=== PATIENT | female | born 2000 | race Caucasian/White ===

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

== ENCOUNTER 2022-10-17 12:02 | Inpatient (IN) | payer OTHER, MEDICAID, SELFPAY ==
--- NOTE | ~2022-10-17 | US_ITS ---
EXAMINATION: US PELVIS CLINICAL INFORMATION: Pelvic pain COMPARISON: None TECHNIQUE: Ultrasound of the pelvis is performed using both transabdominal and transvaginal transducers along with Doppler. Transvaginal imaging is performed due to inadequate visualization transabdominally. FINDINGS: Uterus: The uterus is anteverted and measures 6.6 x 2.4 x 3.4 cm. There is trace fluid in the endocervical canal. The double wall endometrial thickness is 0.6 mm. The uterus is smooth in contour and has normal myometrial echogenicity. Incidental note of mildly prominent periuterine vessels. No visible fibroid. Adnexa: Both ovaries are visualized. There is normal color flow to the adnexa. There is no pelvic ascites or fluid collection. Right ovary measures 3.1 x 2.7 x 2.3 cm for a volume of 10 mL There are multiple tiny peripheral follicles. Left ovary measures 1.6 x 1.4 x 1.5 cm for a volume of 2 mL. US/US pelvic and transvaginal IMPRESSION: Overall essentially unremarkable ultrasound appearance of the uterus. Nonspecific finding of multiple tiny peripheral follicles within the right ovary which measures for greater volume than the left. (10 ml vs 2 ml). No definite findings to suggest ovarian torsion, however recommend close clinical follow-up and if there is continued concern, further evaluation with dedicated Doppler ultrasound could be performed.
[2022-10-17 12:09] VITALS: BP 171/104; PULSE 121; RESP 20; TEMP 36.9; O2SAT 99; BMI 20.5
--- NOTE | 2022-10-17 13:13 | PC.NURSE ---
Addendum entered by Lu Heck 10/17/22 16:22: Care team notified of Medical cleared status. Addendum entered by Lu Heck 10/17/22 14:49: Plan at this time is for PO antibiotic, lab work and PO ativan. Pt and family aware of plan. Addendum entered by Lu Heck 10/17/22 14:41: Provider at bedside for initial eval. Original Note: Affect is flat with bizarre word choice. Pt denies SI/HI but reports it intermittently. per pt this is the first time my head is silent, but mostly on left side . Pt able to contract for safety. Denies any significant medical history/surgical history, recent drug use, ETOH, AH or VH.
[2022-10-17 13:20] LABS: Appearance Urine Clear; Color Urine Dark Yellow; Glucose Urine UA Negative (Negative); Leukocyte Esterase Urine Small (1+) (Negative); Nitrite Urine Negative (Negative); UMIC TRIGGER UACC YES; Urine Blood Negative (Negative); Urine Ketones >=160 mg/dL (Negative); Urine Protein 100 (2+) mg/dL (Neg-Trace)
[2022-10-17 13:21] LABS: UPreg QC Valid YES; Urine Pregnancy NEGATIVE (NEGATIVE)
[2022-10-17 13:28] LABS: Amphetamine Screen Urine Not Detected (Not Detect); Bacteria Urine 1+ (None Seen); Barbiturates, Urine Not Detected (Not Detect); Benzodiazepines Screen Urine Not Detected (Not Detect); Cannabinoid Screen Urine POSITIVE (Not Detect); Cocaine Screen Urine Not Detected (Not Detect); Fentanyl, urine Not Detected (Not Detect); Hyaline Casts Urine 0-2 /LPF (0-2); Opiate Screen Urine Not Detected (Not Detect); Phencyclidine Screen Urine Not Detected (Not Detect); Specific Gravity - Urine >= 1.030 (1.005-1.025); UACC Culture Trigger YES; WBC Urine 21-50 /HPF (0-5)
[2022-10-17 13:32] LABS: COVID-19 Test Negative (Negative); IDNOW Serial# 16C4AD1C
[2022-10-17 14:00] VITALS: RESP 16
--- NOTE | 2022-10-17 14:37 | ED_ITS ---
HPI - Psych General Chief Complaint: Psychiatric Symptoms Stated Complaint: Crisis Evaluated Time Seen by Provider: 10/17/22 13:08 Source: patient Mode of arrival: ambulatory Limitations: no limitations History of Present Illness HPI Narrative: This is a 21-year-old female who has no known medical history who presents with her aunt with concern for change in behavior. Per aunt the patient has a long standing history of trauma exposure, exposure to parents and siblings who have used substances. Patient has had difficulty sleeping for the last week, decreased intake and strange behavior per aunt. Aunt is concerned that she may have been using substances with her brother. History of present illness from the patient is limited. She does deny no suicidal ideations, homicidal ideations, hallucinations. She has no complaints. She denies substance use. Related Data Home Medications Medication Instructions Recorded Confirmed No Known Home Meds 10/17/22 10/17/22 Allergies Allergy/AdvReac Type Severity Reaction Status Date / Time apple [APPLES] Allergy Unknown ITCHING Unverified 06/30/20 17:20 Review of Systems Review of Systems: Yes all other systems are reviewed and are negative Constitutional: Constitutional: Reports no additional constitutional complaints, Denies body ache(s), Denies chills, Denies fever(s), Denies headache(s) and Denies weakness Eyes: Eyes: Reports no additional eye complaints and Denies change in vision ENT: Reports system reviewed and no additional complaints, except as documented, Denies dizziness, Denies headache(s), Denies nasal congestion, Denies nasal discharge and Denies neck pain Cardiovascular: Cardiovascular: Reports no additional cardiovascular complaints, Denies chest pain, Denies leg edema and Denies dyspnea Respiratory: Respiratory: Reports no additional respiratory complaints, Denies cough and Denies dyspnea Gastrointestinal: Gastrointestinal: Reports no additional gastrointestinal complaints, Denies abdominal pain, Denies diarrhea, Denies nausea and Denies vomiting Genitourinary: Genitourinary: Reports no additional female genitourinary complaints and Denies urinary incontinence Musculoskeletal: Musculoskeletal: Reports no additional musculoskeletal complaints, Denies back pain, Denies arthralgias, Denies joint swelling, Denies neck pain, Denies numbness and Denies tingling Integumentary/Breasts: Skin/Breast: Reports system reviewed and no additional complaints, except as docu and Denies rash Neurologic: Reports system reviewed and no additional complaints, except as documented, Denies Abnormal speech present, Denies dizziness, Denies headache(s), Denies numbness, Denies tingling and Denies weakness PMFSH Past Medical History Attestation statement: The following information was validated with the patient. Source: old records reviewed and nursing notes reviewed Medical History No known health problems Surgical History No history of previous surgery Social History Social History Alcohol intake: unknown Smoked in Last 30 Days: No Use of substances other than those prescribed or required for medical reasons: Unknown Advance Directives: No Patient : No Physical Exam Vital Signs: Vital Signs: Last Vital Signs Temp 98.2 F 10/18/22 10:41 Pulse 105 H 10/18/22 10:41 Resp 16 10/18/22 10:41 BP 150/95 H 10/18/22 10:41 Pulse Ox 96 10/18/22 10:41 O2 Del Method 10/18/22 10:41 BMI result Body Mass Index 20.5 Const: Other: Restless, anxious General: alert Orientation/consciousness: patient oriented x3 Limitations: no limitations HEENT: Head: Yes normal to inspection Ears: hearing grossly normal bilaterally General nose exam: Normal external nose present Face and sinus: Yes normal facial exam Mouth: Normal oral and palatal mucosa present Throat: Yes posterior oropharynx normal Eyes: General: appearance normal, both eyes and all related structures Pupils: Equal, round and reactive pupils present Neck: Neck: Yes normal visual inspection Chest: Chest palpation & inspection: normal inspection of the chest Resp: Effort & Inspection: normal respiratory effort Auscultation: clear to auscultation bilaterally Cardio: Rate: regular rate Rhythm: regular rhythm Peripheral pulses: Peripheral pulses 2+ throughout GI: Inspection: Yes normal to inspection Palpation (GI): Soft to palpation and nontender Auscultation: normal bowel sounds Back/Spine/Pelvis: Thoracic/Lumbar Spine: thoracic and lumbar spine normal to inspection Skin: General skin exam: no rashes or lesions noted Neuro: Other: Hyperverbal, hypersexual, restless General: patient oriented x3, moves all extremities, no focal motor deficits and normal sensation to monofilament Cranial nerves: Yes CN's II-XII intact bilaterally and Yes Equal, round and reactive pupils present Speech: No Abnormal speech present Gait exam (Neuro): Normal gait present Extrem: General: Yes normal to inspection Course Course Course Narrative: No concern for acute ingestion or trauma. Reviewed labs and tox screen. Patient has a care team consultation for further evaluation. Medications Administered Generic Name Dose Route Start Last Admin Trade Name Freq PRN Reason Stop Dose Admin Nitrofurantoin Macrocrystals 100 mg 10/18/22 09:00 10/18/22 10:17 Nitrofurantoin Monohyd/M-Cryst 100 Mg Capsule PO 100 mg BID INO Administration Discontinued Medications Generic Name Dose Route Start Last Admin Trade Name Freq PRN Reason Stop Dose Admin Diphenhydramine HCl 50 mg 10/17/22 20:44 10/17/22 20:51 Diphenhydramine Hcl 25 Mg Capsule PO 10/17/22 20:45 50 mg ONCE ONE Administration Lorazepam 2 mg 10/17/22 14:48 10/17/22 14:56 Lorazepam 1 Mg Tablet PO 10/17/22 14:49 2 mg ONCE ONE Administration Lorazepam 2 mg 10/17/22 20:44 10/17/22 20:51 Lorazepam 1 Mg Tablet PO 10/17/22 20:45 2 mg ONCE ONE Administration Nitrofurantoin Macrocrystals 100 mg 10/17/22 14:48 10/17/22 14:56 Nitrofurantoin Monohyd/M-Cryst 100 Mg Capsule PO 10/17/22 14:49 100 mg ONCE ONE Administration Olanzapine 5 mg 10/17/22 20:44 10/17/22 20:51 Olanzapine 5 Mg Tablet PO 10/17/22 20:45 5 mg ONCE ONE Administration Medical Decision Making Medical Decision Making [facility] Narrative: 21-year-old female here with change in behavior, concern for odd behavior from family, insomnia. On arrival patient is quite anxious, restless, hyperverbal during conversation, hypersexual Patient is tachycardic Patient feels well and tells me nothing is bothering Will obtain labs, drug screen, COVID screen Will give lorazepam oral Differential Diagnosis Differential Diagnoses: The differential diagnosis associated with the presentation includes Anxiety, insomnia, manic episode, polysubstance abuse Lab Data [facility] Lab Attestation statement: I reviewed the patient's lab results. Result Diagrams: 10/17/22 15:04 10/17/22 15:04 Labs: Lab Results 10/17/22 10/17/22 10/17/22 Range/Units 13:07 13:07 13:07 WBC (4.8-10.8) X10*3/uL RBC (4.20-5.50) X10*6/uL Hgb (12.0-16.0) g/dl Hct (37.0-47.0) % MCV (80.0-98.0) fL MCH (27.0-33.0) pg MCHC (31.0-35.0) g/dl RDW (11.0-16.0) % Plt Count (160-400) X10*3/uL MPV (9.4-12.3) fL Immature Gran % (Auto) (0.0-0.4) % Neut % (Auto) (45-73) % Lymph % (Auto) (20-40) % [place] % (Auto) (2-11) % Eos % (Auto) (0-4) % Baso % (Auto) (0-2) % Lymph # (Auto) (1.2-4.9) X10*3/uL [place] # (Auto) (0.1-1.2) X10*3/uL Eos # (Auto) (0.0-0.4) X10*3/uL Baso # (Auto) (0.0-0.2) X10*3/uL Abs Immat Gran (auto) (0.00-0.03) X10*3/uL Absolute Neuts (auto) (2.0-8.3) x10*3/uL Absolute Nucleated RBC (0.0-0.012) X10*3/uL Nucleated RBC % (auto) (0.0-0.2) /100WBC Sodium (135-145) mmol/L Potassium (3.3-5.1) mmol/L Chloride (96-108) mmol/L Carbon Dioxide (22-29) mmol/L Anion Gap (12-20) BUN (9-16) mg/dL Creatinine (0.5-1.4) mg/dL Estim Creat Clear Calc Estimated GFR Random Glucose (60-115) mg/dL Calcium (8.4-10.2) mg/dL Total Bilirubin (0.0-1.0) mg/dL Direct Bilirubin (0.0-0.5) mg/dL AST (5-31) U/L ALT (0-31) U/L Alkaline Phosphatase (39-117) U/L Total Protein (6.5-8.0) g/dL Albumin (3.5-5.0) g/dL TSH (0.32-4.0) uIU/mL Urine Color Dark Yellow Urine Appearance Clear Urine pH 6.0 (5.0-9.0) Ur Specific [place] >= 1.030 H (1.005-1.025) Urine Protein 100 (2+) H (Neg-Trace) mg/dL Urine Glucose (UA) Negative (Negative) mg/dL Urine Ketones >=160 (Negative) mg/dL Urine Blood Negative (Negative) Urine Nitrite Negative (Negative) Ur Leukocyte Esterase Small (1+) H (Negative) Urine RBC 3-5 H (0-2) /HPF Urine WBC 21-50 H (0-5) /HPF Ur Squamous Epith Cells 3-5 (0-2) /HPF Urine Bacteria 1+ (None Seen) Hyaline Casts 0-2 (0-2) /LPF Urine Test NEGATIVE (NEGATIVE) Salicylates (15-30) mg/dL Urine Opiates Screen (Not Detect) Urine Fentanyl Screen (Not Detect) Acetaminophen (<30) mcg/mL Ur Barbiturates Screen (Not Detect) Ur Phencyclidine Scrn (Not Detect) Ur Amphetamines Screen (Not Detect) U Benzodiazepines Scrn (Not Detect) Urine Cocaine Screen (Not Detect) U Marijuana (THC) Screen (Not Detect) Ethyl Alcohol mg/dL COVID-19 ([facility]) Negative (Negative) COVID-19 Clin Com See Note 10/17/22 10/17/22 10/17/22 Range/Units 13:07 15:04 15:04 WBC 15.1 H (4.8-10.8) X10*3/uL RBC 4.80 (4.20-5.50) X10*6/uL Hgb 14.0 (12.0-16.0) g/dl Hct 41.4 (37.0-47.0) % MCV 86.3 (80.0-98.0) fL MCH 29.2 (27.0-33.0) pg MCHC 33.8 (31.0-35.0) g/dl RDW 13.4 (11.0-16.0) % Plt Count 261 (160-400) X10*3/uL MPV 12.2 (9.4-12.3) fL Immature Gran % (Auto) 0.3 (0.0-0.4) % Neut % (Auto) 80.5 H (45-73) % Lymph % (Auto) 11.0 L (20-40) % [place] % (Auto) 7.6 (2-11) % Eos % (Auto) 0.1 (0-4) % Baso % (Auto) 0.5 (0-2) % Lymph # (Auto) 1.7 (1.2-4.9) X10*3/uL [place] # (Auto) 1.2 (0.1-1.2) X10*3/uL Eos # (Auto) 0.0 (0.0-0.4) X10*3/uL Baso # (Auto) 0.1 (0.0-0.2) X10*3/uL Abs Immat Gran (auto) 0.05 H (0.00-0.03) X10*3/uL Absolute Neuts (auto) 12.2 H (2.0-8.3) x10*3/uL Absolute Nucleated RBC 0.000 (0.0-0.012) X10*3/uL Nucleated RBC % (auto) 0.0 (0.0-0.2) /100WBC Sodium 138 (135-145) mmol/L Potassium 3.8 (3.3-5.1) mmol/L Chloride 104 (96-108) mmol/L Carbon Dioxide 23 (22-29) mmol/L Anion Gap 15 (12-20) BUN 10 (9-16) mg/dL Creatinine 0.71 (0.5-1.4) mg/dL Estim Creat Clear Calc 109.5 Estimated GFR > 60 Random Glucose 95 (60-115) mg/dL Calcium 10.4 H (8.4-10.2) mg/dL Total Bilirubin 1.6 H (0.0-1.0) mg/dL Direct Bilirubin 0.5 (0.0-0.5) mg/dL AST 48 H (5-31) U/L ALT 51 H (0-31) U/L Alkaline Phosphatase 66 (39-117) U/L Total Protein 8.0 (6.5-8.0) g/dL Albumin 4.9 (3.5-5.0) g/dL TSH 1.59 (0.32-4.0) uIU/mL Urine Color Urine Appearance Urine pH (5.0-9.0) Ur Specific [place] (1.005-1.025) Urine Protein (Neg-Trace) mg/dL Urine Glucose (UA) (Negative) mg/dL Urine Ketones (Negative) mg/dL Urine Blood (Negative) Urine Nitrite (Negative) Ur Leukocyte Esterase (Negative) Urine RBC (0-2) /HPF Urine WBC (0-5) /HPF Ur Squamous Epith Cells (0-2) /HPF Urine Bacteria (None Seen) Hyaline Casts (0-2) /LPF Urine Test (NEGATIVE) Salicylates < 5.0 L (15-30) mg/dL Urine Opiates Screen Not Detected (Not Detect) Urine Fentanyl Screen Not Detected (Not Detect) Acetaminophen < 1 (<30) mcg/mL Ur Barbiturates Screen Not Detected (Not Detect) Ur Phencyclidine Scrn Not Detected (Not Detect) Ur Amphetamines Screen Not Detected (Not Detect) U Benzodiazepines Scrn Not Detected (Not Detect) Urine Cocaine Screen Not Detected (Not Detect) U Marijuana (THC) Screen POSITIVE H (Not Detect) Ethyl Alcohol < 10 mg/dL COVID-19 ([facility]) (Negative) COVID-19 Clin Com Independent Historian Clinical information obtained from an independent historian. History obtained from or confirmed by: Other (aunt) Discharge Plan Discharge Clinical Impression: Acute psychosis, UTI (urinary tract infection) Patient Disposition: Still a Patient Prescriptions: No Action No Known Home Meds Interventions: Dent-Suicide Risk Severity Scale Last Done: 10/18/22 12:00
[2022-10-17] MEDS: Nitrofurantoin Monohyd/M-Cryst 100 MG CAPSULE PO (14:56)
[2022-10-17] MEDS: LORazepam 1 MG TABLET 2 MG PO ×2 (14:56→20:51)
[2022-10-17 15:07] LABS: MANUAL DIFF FLAG NO
[2022-10-17 15:12] LABS: Basophils Absolute Auto 0.1 X10*3/uL (0.0-0.2); Basophils Percent Auto 0.5 % (0-2); Eosinophils Percent Auto 0.1 % (0-4); Hematocrit 41.4 % (37.0-47.0); Imm Gran Abs Auto 0.05 X10*3/uL (0.00-0.03); Imm Gran Pct Auto 0.3 % (0.0-0.4); Lymphocytes Absolute Auto 1.7 X10*3/uL (1.2-4.9); Mean Corpuscular HGB Conc 33.8 g/dl (31.0-35.0); Mean Corpuscular Hemoglobin 29.2 pg (27.0-33.0); Mean Corpuscular Volume 86.3 fL (80.0-98.0); Mean Platelet Volume 12.2 fL (9.4-12.3); Monocytes Absolute Auto 1.2 X10*3/uL (0.1-1.2); Monocytes Percent Auto 7.6 % (2-11); Neutrophils Absolute Auto 12.2 x10*3/uL (2.0-8.3); Neutrophils Percent Auto 80.5 % (45-73); Platelet Count 261 X10*3/uL (160-400); Red Cell Distribution Width 13.4 % (11.0-16.0); White Blood Count 15.1 X10*3/uL (4.8-10.8)
[2022-10-17 15:51] LABS: Alanine Aminotransferase 51 U/L (0-31); Albumin Level 4.9 g/dL (3.5-5.0); Alkaline Phosphatase 66 U/L (39-117); Anion Gap 15 (12-20); Aspartate Amino Transferase 48 U/L (5-31); Bilirubin Direct 0.5 mg/dL (0.0-0.5); Bilirubin Total 1.6 mg/dL (0.0-1.0); Blood Urea Nitrogen 10 mg/dL (9-16); Calcium 10.4 mg/dL (8.4-10.2); Carbon Dioxide 23 mmol/L (22-29); Chloride 104 mmol/L (96-108); Creatinine Clr Calc Pharmacy 109.5; Estimated Glomerular Filt Rate > 60; Ethanol < 10 mg/dL; Glucose Random 95 mg/dL (60-115); Potassium 3.8 mmol/L (3.3-5.1); Salicylate < 5.0 mg/dL (15-30); Sodium 138 mmol/L (135-145)
[2022-10-17 15:56] LABS: Thyroid Stimulating Hormone 1.59 uIU/mL (0.32-4.0)
[2022-10-17 16:00] VITALS: RESP 18
[2022-10-17 16:09] LABS: Acetaminophen LAB < 1 mcg/mL (<30)
[2022-10-17 18:00] VITALS: RESP 18
[2022-10-17 20:32] VITALS: BP 145/107; PULSE 122; RESP 15; TEMP 37.7; O2SAT 99
[2022-10-17] MEDS: diphenhydrAMINE HCL 25 MG CAPSULE 50 MG PO (20:51)
[2022-10-17] MEDS: OLANZapine 5 MG TABLET PO (20:51)
[2022-10-18 02:30] VITALS: BP 140/92; PULSE 117; RESP 15; TEMP 37; O2SAT 99
--- NOTE | 2022-10-18 04:35 | PC.NURSE ---
Patient appears restless, HR 122, provider notified/ordered Ativan 2 mg PO, Benadryl 50 mg po, and Olanzapine 5 mg PO administered as ordered at 2050 with + effect, patient slept though the night, no distress observed/reported, med rec completed/patient is currently not on any home medication, patient + UTI, Macrobid 100 mg BID order in placed, disposition per care team section 12 inpatient bed search, will continue to monitor.
[2022-10-18] MEDS: Nitrofurantoin Monohyd/M-Cryst 100 MG CAPSULE PO ×2 (10:17→20:45)
[2022-10-18 10:41] VITALS: BP 150/95; PULSE 105; RESP 16; TEMP 36.8; O2SAT 96
[2022-10-18] MEDS: Acetaminophen 325 MG TABLET 975 MG PO (13:51)
--- NOTE | 2022-10-18 15:43 | PC.NURSE ---
nurse to nurse given to [facility]5 staff
[2022-10-18 18:00] VITALS: BP 138/94; PULSE 110; RESP 16; TEMP 36.2; O2SAT 98
[2022-10-18 18:26] VITALS: BP 134/89; PULSE 110; RESP 16; TEMP 36.4; O2SAT 99; BMI 21.1
[2022-10-18] MEDS: cloNIDine HCL 0.1 MG TABLET PO (20:45)
--- NOTE | 2022-10-18 22:31 | PC.ADMIT ---
Pt is a 21 year old female admitted for altered mental status and mood change. Pt is new to psych and [facility]. Pt is alert and oriented with some episodes of delusions. VSS, covid negative and tox screen positive for THC. Pt reports that she has been having insomnia for 4 days. Speech is normal tone and rhythm with some episodes of incoherence. Pt denies SI/HI/VH/AH. She states that she needs help establishing providers. Currently, pt is living with her grandmother who has custody of her after the passing of her father several years ago. Pt brother and grand mother verbalized concerns regarding pt's current mental status and worried that pt may decompensate if she is not attended to. Admission orders obtained.
[2022-10-19] MEDS: Acetaminophen 325 MG TABLET 650 MG PO (00:39)
[2022-10-19] MEDS: traZODone HCL 50 MG TABLET PO (00:40)
[2022-10-19] MEDS: Magnesium Hydrox/Alum Hydrox 30 ML ORAL.SUSP PO (03:52)
[2022-10-19] MEDS: hydrOXYzine HCL 25 MG TABLET PO (05:04)
[2022-10-19 05:20] VITALS: BP 154/93; PULSE 106; RESP 14; TEMP 36.4; O2SAT 99
[2022-10-19] MEDS: cloNIDine HCL 0.1 MG TABLET PO ×2 (06:45→20:48)
[2022-10-19 06:48] VITALS: BP 136/96; PULSE 122
[2022-10-19] MEDS: Nitrofurantoin Monohyd/M-Cryst 100 MG CAPSULE PO (08:40)
[2022-10-19 08:55] LABS: Alanine Aminotransferase 46 U/L (0-31); Albumin Level 4.4 g/dL (3.5-5.0); Alkaline Phosphatase 64 U/L (39-117); Anion Gap 16 (12-20); Aspartate Amino Transferase 29 U/L (5-31); Bilirubin Total 1.5 mg/dL (0.0-1.0); Blood Urea Nitrogen 7 mg/dL (9-16); Calcium 9.4 mg/dL (8.4-10.2); Carbon Dioxide 25 mmol/L (22-29); Chloride 100 mmol/L (96-108); Cholesterol 166 mg/dL; Creatinine Clr Calc Pharmacy 114.8; Estimated Glomerular Filt Rate > 60; Glucose Fasting 93 mg/dL (60-99); HDL Cholesterol 74 mg/dL; LDL Cholesterol Calculated 84 mg/dl; Potassium 3.7 mmol/L (3.3-5.1); Sodium 137 mmol/L (135-145); Triglycerides 42 mg/dL
[2022-10-19 09:07] VITALS: BP 154/93; PULSE 106; RESP 14; TEMP 36.4; O2SAT 99
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
[2022-10-19 13:21] LABS: MANUAL DIFF FLAG NO
[2022-10-19 13:25] LABS: Basophils Absolute Auto 0.1 X10*3/uL (0.0-0.2); Basophils Percent Auto 0.6 % (0-2); Eosinophils Absolute Auto 0.2 X10*3/uL (0.0-0.4); Eosinophils Percent Auto 1.4 % (0-4); Hematocrit 39.3 % (37.0-47.0); Hemoglobin 12.9 g/dl (12.0-16.0); Imm Gran Abs Auto 0.03 X10*3/uL (0.00-0.03); Imm Gran Pct Auto 0.3 % (0.0-0.4); Lymphocytes Absolute Auto 1.4 X10*3/uL (1.2-4.9); Lymphocytes Percent Auto 13.1 % (20-40); Mean Corpuscular HGB Conc 32.8 g/dl (31.0-35.0); Mean Corpuscular Hemoglobin 28.5 pg (27.0-33.0); Mean Corpuscular Volume 86.9 fL (80.0-98.0); Mean Platelet Volume 12.4 fL (9.4-12.3); Monocytes Absolute Auto 1.2 X10*3/uL (0.1-1.2); Monocytes Percent Auto 10.6 % (2-11); Neutrophils Absolute Auto 8.1 x10*3/uL (2.0-8.3); Platelet Count 239 X10*3/uL (160-400); Red Blood Count 4.52 X10*6/uL (4.20-5.50); Red Cell Distribution Width 13.6 % (11.0-16.0); White Blood Count 10.9 X10*3/uL (4.8-10.8)
[2022-10-19] MEDS: LORazepam 1 MG TABLET PO (16:27)
[2022-10-19] MEDS: risperiDONE 0.5 MG TABLET PO (16:27)
[2022-10-19 18:00] VITALS: BP 140/84; PULSE 100; TEMP 36.8; O2SAT 97
[2022-10-19] MEDS: risperiDONE 1 MG TABLET PO (20:48)
[2022-10-20] MEDS: hydrOXYzine HCL 25 MG TABLET PO ×2 (05:52→16:02)
[2022-10-20] MEDS: Acetaminophen 325 MG TABLET 650 MG PO (05:57)
[2022-10-20 06:00] VITALS: BP 140/88; PULSE 106; RESP 16; TEMP 36.9; O2SAT 100
[2022-10-20] MEDS: risperiDONE 1 MG TABLET PO (08:35)
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
[2022-10-20] MEDS: cloNIDine HCL 0.1 MG TABLET PO ×2 (12:36→19:48)
[2022-10-20 19:45] VITALS: BP 125/78; PULSE 114; TEMP 36
[2022-10-20] MEDS: traZODone HCL 50 MG TABLET PO ×2 (19:47→21:29)
[2022-10-20] MEDS: risperiDONE 2 MG TABLET PO (19:48)
[2022-10-21 06:00] VITALS: BP 151/66; PULSE 120; RESP 16; TEMP 37; O2SAT 99
[2022-10-21] MEDS: cloNIDine HCL 0.1 MG TABLET PO ×2 (10:05→20:21)
--- NOTE | 2022-10-21 10:43 | HO.PSYCHPN ---
Subjective Subjective Date of Service: 10/21/22 Reason For Visit: Mood Interim History: pt says she's feeling better, less anxious and no longer feeling weight of the world. took shower today. Says she feels she's thinking more clearly too. No SI/HI or AVH. Slept well last night; no nightmares. Mental Status Exam Mental Status Exam Narrative: Appearance: wearing casual clothes, with hoodie over her head; adequate hygiene Behavior: more organized; calm, cooperative Psychomotor: no overt agitation or retardation noted TP: circumstantial TC: problems at home; feeling overwhelmed, needing support Mood: better Affect: congruent, calm SI: Denies HI: Denies AH/VH: Currently denies; recently + AH, mumbles at times Delusions: Seems to be some possible persecutory, paranoid delusions, but patient is vague Insight/judgment: Improved alert, oriented x 3. Diagnostics Vital Signs (24Hr): Vital Signs - 24 hr 10/20/22 19:45 10/21/22 06:00 Temperature 96.8 F 98.6 F Pulse Rate 114 H 120 H Respiratory Rate 16 Blood Pressure 125/78 151/66 H Pulse Oximetry 99 Oxygen Delivery Method Room Air BMI result Body Mass Index 21.1 Labs 10/19/22 13:11 10/19/22 08:06 Labs: Laboratory Results - last 48 hr 10/19/22 13:11 WBC 10.9 H RBC 4.52 Hgb 12.9 Hct 39.3 MCV 86.9 MCH 28.5 MCHC 32.8 RDW 13.6 Plt Count 239 MPV 12.4 H Immature Gran % (Auto) 0.3 Neut % (Auto) 74.0 H Lymph % (Auto) 13.1 L [place] % (Auto) 10.6 Eos % (Auto) 1.4 Baso % (Auto) 0.6 Lymph # (Auto) 1.4 [place] # (Auto) 1.2 Eos # (Auto) 0.2 Baso # (Auto) 0.1 Abs Immat Gran (auto) 0.03 Absolute Neuts (auto) 8.1 Absolute Nucleated RBC 0.000 Nucleated RBC % (auto) 0.0 Imaging Radiology Impressions: ITS Impressions Pelvic/Transvag US 10/19/22 17:56 IMPRESSION: Overall essentially unremarkable ultrasound appearance of the uterus. Nonspecific finding of multiple tiny peripheral follicles within the right ovary which measures for greater volume than the left. (10 ml vs 2 ml). No definite findings to suggest ovarian torsion, however recommend close clinical follow-up and if there is continued concern, further evaluation with dedicated Doppler ultrasound could be performed. Medications Medications Current Medications Acetaminophen (Acetaminophen 325 Mg Tablet) 650 mg PO Q6H PRN PRN Reason: Headache/Pain Mild Scale (1-3) Last Admin: 10/20/22 05:57 Dose: 650 mg Al Hydroxide/Mg Hydroxide (Magnesium Hydrox/Alum Hydrox 30 Ml Oral.Susp) 30 ml PO Q6H PRN PRN Reason: Heartburn/Nausea Last Admin: 10/19/22 03:52 Dose: 30 ml Clonidine HCl (Clonidine Hcl 0.1 Mg Tablet) 0.1 mg PO Q4H PRN; Protocol PRN Reason: anxiety Last Admin: 10/21/22 10:05 Dose: 0.1 mg Clonidine HCl (Clonidine Hcl 0.1 Mg Tablet) 0.1 mg PO BEDTIME INO; Protocol Last Admin: 10/20/22 19:48 Dose: 0.1 mg Hydroxyzine HCl (Hydroxyzine Hcl 25 Mg Tablet) 25 mg PO Q6H PRN PRN Reason: Anxiety Last Admin: 10/20/22 16:02 Dose: 25 mg Magnesium Hydroxide (Milk Of Magnesia 30 Ml Oral.Susp) 30 ml PO DAILY PRN PRN Reason: Constipation Risperidone (Risperidone 2 Mg Tablet) 2 mg PO BEDTIME INO Last Admin: 10/20/22 19:48 Dose: 2 mg Trazodone HCl (Trazodone Hcl 50 Mg Tablet) 50 mg PO BEDTIME INO Last Admin: 10/20/22 19:47 Dose: 50 mg Trazodone HCl (Trazodone Hcl 50 Mg Tablet) 50 mg PO BEDTIME PRN PRN Reason: continued insomnia Last Admin: 10/20/22 21:29 Dose: 50 mg Allergies Allergies Allergy/AdvReac Type Severity Reaction Status Date / Time apple [APPLES] Allergy Intermediate ITCHING/scratching Verified 10/19/22 04:34 in throat Assessment & Plan Assessment & Plan (1) Psychosis: Status: Acute Code(s): F29 - Unspecified psychosis not due to a substance or known physiological condition (2) PTSD (post-traumatic stress disorder): Status: Acute Code(s): F43.10 - Post-traumatic stress disorder, unspecified Plan Ms. aguilar is a 21 year-old woman with no significant prior hx of psychiatric illness depite hx of trauma. Pt was brought to [facility] [place] due to increase paranoid, bizarre behaviors, poor sleep, hearing voices in past 3 weeks. utox positive for cannabinoids. This is first time she experienced symptoms of psychosis. Level of function recently declined, but no clear indication of prodromal period of schizophrenia in the past year or more. Pt presents as dysphoric, tearful at times, still paranoid, hearing voices. It also appears pt recently started using cannabinoids. We discussed risks, benefits and alternative treatment options. Pt agreed to start risperidone. Ativan added prn for anxiety s/s to delusions and psychosis. 10/20/2022 Still unclear exactly how to combining patient's symptoms into a diagnosis. Clearly she is overwhelmed and anxious and has history of trauma with PTSD. Also she is mildly disorganized in speech and behavior. Patient agrees to continue taking Risperdal; will move it towards bedtime to help with insomnia. Patient may also benefit from SSRI but will hold off for now especially given the fact that she had not slept in about 7 days and is at risk for triggering manic episode (if not already in one). 10/21 feeling better; slept well, feels more clearminded and less anxious PLAN 1. Admit to M5, CV, 15 minutes checks for safety. Rodríguez warning given and shows understanding. Change to risperidone 2 mg q.h.s. Need more collateral and better understanding of baseline Aftercare planning; therapist and prescriber Patient educated on: diagnosis and medication risk/benefits Informed Consent: understands and further education needed Reason for contiued inpatient stay Substantial Risk for: rapid decompensation Time Spent With Patient Time: Total time managing care of this patient today ____ minutes.
[2022-10-21] MEDS: Magnesium Hydrox/Alum Hydrox 30 ML ORAL.SUSP PO (11:15)
[2022-10-21 20:20] VITALS: BP 119/77; PULSE 99; TEMP 36.2
[2022-10-21] MEDS: risperiDONE 2 MG TABLET PO (20:20)
[2022-10-21] MEDS: traZODone HCL 50 MG TABLET PO (20:21)
[2022-10-22 06:00] VITALS: BP 120/62; PULSE 71; RESP 16; TEMP 36.4; O2SAT 98
--- NOTE | 2022-10-22 11:22 | P.PNPSI_ITS ---
Subjective Subjective Date of Service: 10/22/22 Reason For Visit: Mood Subjective Notes: Conditional Voluntary Interim History: Pt presents less labile. She reports less anxious mood which relates to feeling unsafe prior to coming to the hospital. She continues to present with some degree of caodaism ideas and suspiciousness but much more clear. She reports le ss AH. She denies SI/HI. She is taking medications as prescribed. no behavioral concerns. Pt sleeping better. Medication Compliance: Yes Side effects from medications: No Review of Systems Review of Systems Yes all other systems are reviewed and are negative Constitutional: Reports no additional constitutional complaints, Denies body ache(s), Denies chills, Reports fatigue, Denies fever(s), Denies headache(s) and Denies weakness Eyes: Reports no additional eye complaints and Denies change in vision Reports system reviewed and no additional complaints, except as documented, Denies dizziness, Denies headache(s), Denies nasal congestion, Denies nasal discharge and Denies neck pain Cardiovascular: Reports no additional cardiovascular complaints, Denies chest pain, Denies chest pain at rest, Denies leg edema, Denies lightheadedness and Denies dyspnea Respiratory: Reports no additional respiratory complaints, Denies cough and Denies dyspnea Gastrointestinal: Reports no additional gastrointestinal complaints, Reports abdominal pain (lower abdominal pain, dull pain intermittent), Denies diarrhea, Denies nausea and Denies vomiting Musculoskeletal: Reports no additional musculoskeletal complaints, Denies back pain, Denies arthralgias, Denies joint swelling, Denies neck pain, Denies numbness and Denies tingling Skin/Breast: Reports system reviewed and no additional complaints, except as docu and Denies rash Reports system reviewed and no additional complaints, except as documented, Denies Abnormal speech present, Denies dizziness, Denies headache(s), Denies numbness, Denies tingling and Denies weakness Endocrine: Reports fatigue Mental Status Exam Mental Status Exam Narrative: Appearance: wearing casual clothes, with hoodie over her head; adequate hygiene Behavior: more organized; calm, cooperative Psychomotor: no overt agitation or retardation noted TP: circumstantial TC: problems at home; feeling overwhelmed, needing support Mood: better Affect: congruent, calm SI: Denies HI: Denies AH/VH: Currently denies; recently + AH, mumbles at times Delusions: Seems to be some possible persecutory, paranoid delusions, but patient is vague Insight/judgment: Improved alert, oriented x 3. Diagnostics Vital Signs (24Hr): Vital Signs - 24 hr 10/22/22 18:00 Temperature 98.1 F Pulse Rate 81 Blood Pressure 131/89 Pulse Oximetry 97 Oxygen Delivery Method Room Air BMI result Body Mass Index 21.1 Labs 10/19/22 13:11 10/19/22 08:06 Imaging Radiology Impressions: ITS Impressions Pelvic/Transvag US 10/19/22 17:56 IMPRESSION: Overall essentially unremarkable ultrasound appearance of the uterus. Nonspecific finding of multiple tiny peripheral follicles within the right ovary which measures for greater volume than the left. (10 ml vs 2 ml). No definite findings to suggest ovarian torsion, however recommend close clinical follow-up and if there is continued concern, further evaluation with dedicated Doppler ultrasound could be performed. Medications Medications Current Medications Acetaminophen (Acetaminophen 325 Mg Tablet) 650 mg PO Q6H PRN PRN Reason: Headache/Pain Mild Scale (1-3) Last Admin: 10/20/22 05:57 Dose: 650 mg Al Hydroxide/Mg Hydroxide (Magnesium Hydrox/Alum Hydrox 30 Ml Oral.Susp) 30 ml PO Q6H PRN PRN Reason: Heartburn/Nausea Last Admin: 10/21/22 11:15 Dose: 30 ml Clonidine HCl (Clonidine Hcl 0.1 Mg Tablet) 0.1 mg PO Q4H PRN; Protocol PRN Reason: anxiety Last Admin: 10/21/22 10:05 Dose: 0.1 mg Clonidine HCl (Clonidine Hcl 0.1 Mg Tablet) 0.1 mg PO BEDTIME INO; Protocol Last Admin: 10/22/22 20:38 Dose: 0.1 mg Hydroxyzine HCl (Hydroxyzine Hcl 25 Mg Tablet) 25 mg PO Q6H PRN PRN Reason: Anxiety Last Admin: 10/20/22 16:02 Dose: 25 mg Magnesium Hydroxide (Milk Of Magnesia 30 Ml Oral.Susp) 30 ml PO DAILY PRN PRN Reason: Constipation Risperidone (Risperidone 2 Mg Tablet) 2 mg PO BEDTIME INO Last Admin: 10/22/22 20:38 Dose: 2 mg Trazodone HCl (Trazodone Hcl 50 Mg Tablet) 50 mg PO BEDTIME INO Last Admin: 10/22/22 20:38 Dose: 50 mg Trazodone HCl (Trazodone Hcl 50 Mg Tablet) 50 mg PO BEDTIME PRN PRN Reason: continued insomnia Last Admin: 10/20/22 21:29 Dose: 50 mg Allergies Allergies Allergy/AdvReac Type Severity Reaction Status Date / Time apple [APPLES] Allergy Intermediate ITCHING/scratching Verified 10/19/22 04:34 in throat Assessment & Plan Assessment & Plan (1) Psychosis: Status: Acute Code(s): F29 - Unspecified psychosis not due to a substance or known physiological condition (2) PTSD (post-traumatic stress disorder): Status: Acute Code(s): F43.10 - Post-traumatic stress disorder, unspecified Plan Ms. aguilar is a 21 year-old woman with no significant prior hx of psychiatric illness depite hx of trauma. Pt was brought to [facility] [place] [facility] due to increase paranoid, bizarre behaviors, poor sleep, hearing voices in past 3 weeks. utox positive for cannabinoids. This is first time she experienced symptoms of psychosis. Level of function recently declined, but no clear indication of prodromal period of schizophrenia in the past year or more. Pt presents as dysphoric, tearful at times, still paranoid, hearing voices. It also appears pt recently started using cannabinoids. We discussed risks, benefits and alternative treatment options. Pt agreed to start risperidone. Ativan added prn for anxiety s/s to de lusions and psychosis. 10/20/2022 Still unclear exactly how to combining patient's symptoms into a diagnosis. Clearly she is overwhelmed and anxious and has history of trauma with PTSD. Also she is mildly disorganized in speech and behavior. Patient agrees to continue taking Risperdal; will move it towards bedtime to help with insomnia. Patient may also benefit from SSRI but will hold off for now especially given the fact that she had not slept in about 7 days and is at risk for triggering m anic episode (if not already in one). 10/21 feeling better; slept well, feels more clearminded and less anxious 10/22 continue tx. Reason for contiued inpatient stay Substantial Risk for: inability to function Time Spent With Patient Time: Total time managing care of this patient today ____ minutes.
[2022-10-22 18:00] VITALS: BP 131/89; PULSE 81; TEMP 36.7; O2SAT 97
[2022-10-22] MEDS: cloNIDine HCL 0.1 MG TABLET PO (20:38)
[2022-10-22] MEDS: traZODone HCL 50 MG TABLET PO (20:38)
[2022-10-22] MEDS: risperiDONE 2 MG TABLET PO (20:38)
[2022-10-23 09:20] VITALS: BP 137/66; PULSE 86; RESP 16; TEMP 36.4; O2SAT 98
--- NOTE | 2022-10-23 13:55 | P.PNPSI_ITS ---
Subjective Subjective Date of Service: 10/23/22 Reason For Visit: Mood Subjective Notes: Conditional Voluntary Interim History: Pt seen with brother and JENNY Jordan. Pt presents as less labile, but continues to have gnosticism ideas. She thinks staff are talking to her in a code. She reports less voices. She is sleeping better. Taking medications as prescribed. Brother reports pt appears improved but not yet back to baseline. No SI/HI. No behavioral concerns. Medication Compliance: Yes Review of Systems Review of Systems Yes all other systems are reviewed and are negative Constitutional: Reports no additional constitutional complaints, Denies body ache(s), Denies chills, Reports fatigue, Denies fever(s), Denies headache(s) and Denies weakness Eyes: Reports no additional eye complaints and Denies change in vision Reports system reviewed and no additional complaints, except as documented, Denies dizziness, Denies headache(s), Denies nasal congestion, Denies nasal discharge and Denies neck pain Cardiovascular: Reports no additional cardiovascular complaints, Denies chest pain, Denies chest pain at rest, Denies leg edema, Denies lightheadedness and Denies dyspnea Respiratory: Reports no additional respiratory complaints, Denies cough and Denies dyspnea Gastrointestinal: Reports no additional gastrointestinal complaints, Reports abdominal pain (lower abdominal pain, dull pain intermittent), Denies diarrhea, Denies nausea and Denies vomiting Musculoskeletal: Reports no additional musculoskeletal complaints, Denies back pain, Denies arthralgias, Denies joint swelling, Denies neck pain, Denies numbness and Denies tingling Skin/Breast: Reports system reviewed and no additional complaints, except as docu and Denies rash Reports system reviewed and no additional complaints, except as documented, Denies Abnormal speech present, Denies dizziness, Denies headache(s), Denies numbness, Denies tingling and Denies weakness Endocrine: Reports fatigue Mental Status Exam Mental Status Exam Narrative: Appearance: wearing casual clothes, with hoodie over her head; adequate hygiene Behavior: more organized; calm, cooperative Psychomotor: no overt agitation or retardation noted TP: circumstantial TC: problems at home; feeling overwhelmed, needing support Mood: better Affect: congruent, calm SI: Denies HI: Denies AH/VH: Currently denies; recently + AH, mumbles at times Delusions: Seems to be some possible persecutory, paranoid delusions, but patient is vague Insight/judgment: Improved alert, oriented x 3. Diagnostics Vital Signs (24Hr): Vital Signs - 24 hr 10/23/22 17:05 10/24/22 08:16 10/24/22 12:26 Temperature 98.1 F 97.2 F Pulse Rate 96 114 H 108 H Respiratory Rate 16 18 Blood Pressure 126/72 114/71 139/79 Pulse Oximetry 98 100 Oxygen Delivery Method Room Air Room Air BMI result Body Mass Index 21.1 Labs 10/19/22 13:11 10/19/22 08:06 Imaging Radiology Impressions: ITS Impressions Pelvic/Transvag US 10/19/22 17:56 IMPRESSION: Overall essentially unremarkable ultrasound appearance of the uterus. Nonspecific finding of multiple tiny peripheral follicles within the right ovary which measures for greater volume than the left. (10 ml vs 2 ml). No definite findings to suggest ovarian torsion, however recommend close clinical follow-up and if there is continued concern, further evaluation with dedicated Doppler ultrasound could be performed. Medications Medications Current Medications Acetaminophen (Acetaminophen 325 Mg Tablet) 650 mg PO Q6H PRN PRN Reason: Headache/Pain Mild Scale (1-3) Last Admin: 10/24/22 16:36 Dose: 650 mg Al Hydroxide/Mg Hydroxide (Magnesium Hydrox/Alum Hydrox 30 Ml Oral.Susp) 30 ml PO Q6H PRN PRN Reason: Heartburn/Nausea Last Admin: 10/23/22 15:45 Dose: 30 ml Clonidine HCl (Clonidine Hcl 0.1 Mg Tablet) 0.1 mg PO Q4H PRN; Protocol PRN Reason: anxiety Last Admin: 10/24/22 16:36 Dose: 0.1 mg Clonidine HCl (Clonidine Hcl 0.1 Mg Tablet) 0.1 mg PO BEDTIME INO; Protocol Last Admin: 10/23/22 20:41 Dose: 0.1 mg Hydroxyzine HCl (Hydroxyzine Hcl 25 Mg Tablet) 25 mg PO Q6H PRN PRN Reason: Anxiety Last Admin: 10/20/22 16:02 Dose: 25 mg Magnesium Hydroxide (Milk Of Magnesia 30 Ml Oral.Susp) 30 ml PO DAILY PRN PRN Reason: Constipation Risperidone (Risperidone 2 Mg Tablet) 2 mg PO BID INO Trazodone HCl (Trazodone Hcl 50 Mg Tablet) 50 mg PO BEDTIME INO Last Admin: 10/23/22 20:41 Dose: 50 mg Trazodone HCl (Trazodone Hcl 50 Mg Tablet) 50 mg PO BEDTIME PRN PRN Reason: continued insomnia Last Admin: 10/20/22 21:29 Dose: 50 mg Allergies Allergies Allergy/AdvReac Type Severity Reaction Status Date / Time apple [APPLES] Allergy Intermediate ITCHING/scratching Verified 10/19/22 04:34 in throat Assessment & Plan Assessment & Plan (1) Psychosis: Status: Acute Code(s): F29 - Unspecified psychosis not due to a substance or known physiological condition (2) PTSD (post-traumatic stress disorder): Status: Acute Code(s): F43.10 - Post-traumatic stress disorder, unspecified Plan Ms. aguilar is a 21 year-old woman with no significant prior hx of psychiatric illness depite hx of trauma. Pt was brought to [facility] ED due to increase paranoid, bizarre behaviors, poor sleep, hearing voices in past 3 weeks. utox positive for cannabinoids. This is first time she experienced symptoms of psychosis. L evel of function recently declined, but no clear indication of prodromal period of schizophrenia in the past year or more. Pt presents as dysphoric, tearful at times, still paranoid, hearing voices. It also appears pt recently started using cannabinoids. We discussed risks, benefits and alternative treatment options. Pt agreed to start risperidone. Ativan added prn for anxiety s/s to delusions and psychosis. 10/20/2022 Still unclear exactly how to combining patient's symptoms into a diagnosis. Clearly she is overwhelmed and anxious and has history of trauma with PTSD. Also she is mildly disorganized in speech and behavior. Patient agrees to continue taking Risperdal; will move it towards bedtime to help with insomnia. Patient may also benefit from SSRI but will hold off for now especially given the fact that she had not slept in about 7 days and is at risk for triggering manic episode (if not already in one). 10/21 feeling better; slept well, feels more clearminded and less anxious 10/22 continue tx. 10/23 continue tx. Reason for contiued inpatient stay Substantial Risk for: inability to function Time Spent With Patient Time: Total time managing care of this patient today ____ minutes.
[2022-10-23] MEDS: Magnesium Hydrox/Alum Hydrox 30 ML ORAL.SUSP PO (15:45)
[2022-10-23 17:05] VITALS: BP 126/72; PULSE 96; RESP 16; TEMP 36.7; O2SAT 98
[2022-10-23] MEDS: traZODone HCL 50 MG TABLET PO (20:41)
[2022-10-23] MEDS: cloNIDine HCL 0.1 MG TABLET PO (20:41)
[2022-10-23] MEDS: risperiDONE 2 MG TABLET PO (20:41)
[2022-10-24 08:16] VITALS: BP 114/71; PULSE 114; RESP 18; TEMP 36.2; O2SAT 100
[2022-10-24] MEDS: Acetaminophen 325 MG TABLET 650 MG PO ×2 (09:13→16:36)
[2022-10-24] MEDS: cloNIDine HCL 0.1 MG TABLET PO ×3 (12:25→20:10)
[2022-10-24 12:26] VITALS: BP 139/79; PULSE 108
--- NOTE | 2022-10-24 12:33 | P.PNPSI_ITS ---
Subjective Subjective Date of Service: 10/24/22 Reason For Visit: Mood Subjective Notes: Conditional Voluntary Interim History: Pt continues to present as less labile, less suspicious, but continues to have rastafari ideas/existential nature. She thinks staff continues to talk to her in a code. She reports less voices. She is sleeping better. Taking medications as prescribed. Brother reports pt appears improved but not yet back to baseline. No SI/HI. No behavioral concerns. She agrees to increase risperidone. Review of Systems Review of Systems Yes all other systems are reviewed and are negative Constitutional: Reports no additional constitutional complaints, Denies body ache(s), Denies chills, Reports fatigue, Denies fever(s), Denies headache(s) and Denies weakness Eyes: Reports no additional eye complaints and Denies change in vision Reports system reviewed and no additional complaints, except as documented, Denies dizziness, Denies headache(s), Denies nasal congestion, Denies nasal discharge and Denies neck pain Cardiovascular: Reports no additional cardiovascular complaints, Denies chest pain, Denies chest pain at rest, Denies leg edema, Denies lightheadedness and Denies dyspnea Respiratory: Reports no additional respiratory complaints, Denies cough and Denies dyspnea Gastrointestinal: Reports no additional gastrointestinal complaints, Reports abdominal pain (lower abdominal pain, dull pain intermittent), Denies diarrhea, Denies nausea and Denies vomiting Musculoskeletal: Reports no additional musculoskeletal complaints, Denies back pain, Denies arthralgias, Denies joint swelling, Denies neck pain, Denies numbness and Denies tingling Skin/Breast: Reports system reviewed and no additional complaints, except as docu and Denies rash Reports system reviewed and no additional complaints, except as documented, Denies Abnormal speech present, Denies dizziness, Denies headache(s), Denies numbness, Denies tingling and Denies weakness Endocrine: Reports fatigue Mental Status Exam Mental Status Exam Narrative: Appearance: wearing casual clothes, with hoodie over her head; adequate hygiene Behavior: more organized; calm, cooperative Psychomotor: no overt agitation or retardation noted TP: circumstantial TC: problems at home; feeling overwhelmed, needing support Mood: better Affect: congruent, calm SI: Denies HI: Denies AH/VH: Currently denies; recently + AH, mumbles at times Delusions: Seems to be some possible persecutory, paranoid delusions, but patient is vague Insight/judgment: Improved alert, oriented x 3. Diagnostics Vital Signs (24Hr): Vital Signs - 24 hr 10/23/22 17:05 10/24/22 08:16 10/24/22 12:26 Temperature 98.1 F 97.2 F Pulse Rate 96 114 H 108 H Respiratory Rate 16 18 Blood Pressure 126/72 114/71 139/79 Pulse Oximetry 98 100 Oxygen Delivery Method Room Air Room Air BMI result Body Mass Index 21.1 Labs 10/19/22 13:11 10/19/22 08:06 Imaging Radiology Impressions: ITS Impressions Pelvic/Transvag US 10/19/22 17:56 IMPRESSION: Overall essentially unremarkable ultrasound appearance of the uterus. Nonspecific finding of multiple tiny peripheral follicles within the right ovary which measures for greater volume than the left. (10 ml vs 2 ml). No definite findings to suggest ovarian torsion, however recommend close clinical follow-up and if there is continued concern, further evaluation with dedicated Doppler ultrasound could be performed. Medications Medications Current Medications Acetaminophen (Acetaminophen 325 Mg Tablet) 650 mg PO Q6H PRN PRN Reason: Headache/Pain Mild Scale (1-3) Last Admin: 10/24/22 16:36 Dose: 650 mg Al Hydroxide/Mg Hydroxide (Magnesium Hydrox/Alum Hydrox 30 Ml Oral.Susp) 30 ml PO Q6H PRN PRN Reason: Heartburn/Nausea Last Admin: 10/23/22 15:45 Dose: 30 ml Clonidine HCl (Clonidine Hcl 0.1 Mg Tablet) 0.1 mg PO Q4H PRN; Protocol PRN Reason: anxiety Last Admin: 10/24/22 16:36 Dose: 0.1 mg Clonidine HCl (Clonidine Hcl 0.1 Mg Tablet) 0.1 mg PO BEDTIME INO; Protocol Last Admin: 10/23/22 20:41 Dose: 0.1 mg Hydroxyzine HCl (Hydroxyzine Hcl 25 Mg Tablet) 25 mg PO Q6H PRN PRN Reason: Anxiety Last Admin: 10/20/22 16:02 Dose: 25 mg Magnesium Hydroxide (Milk Of Magnesia 30 Ml Oral.Susp) 30 ml PO DAILY PRN PRN Reason: Constipation Risperidone (Risperidone 2 Mg Tablet) 2 mg PO BID INO Trazodone HCl (Trazodone Hcl 50 Mg Tablet) 50 mg PO BEDTIME INO Last Admin: 10/23/22 20:41 Dose: 50 mg Trazodone HCl (Trazodone Hcl 50 Mg Tablet) 50 mg PO BEDTIME PRN PRN Reason: continued insomnia Last Admin: 10/20/22 21:29 Dose: 50 mg Allergies Allergies Allergy/AdvReac Type Severity Reaction Status Date / Time apple [APPLES] Allergy Intermediate ITCHING/scratching Verified 10/19/22 04:34 in throat Assessment & Plan Assessment & Plan (1) Psychosis: Status: Acute Code(s): F29 - Unspecified psychosis not due to a substance or known physiological condition (2) PTSD (post-traumatic stress disorder): Status: Acute Code(s): F43.10 - Post-traumatic stress disorder, unspecified Plan Ms. aguilar is a 21 year-old woman with no significant prior hx of psychiatric illness depite hx of trauma. Pt was [place] [facility] [place] to increase paranoid, bizarre behaviors, poor sleep, hearing voices in past 3 weeks. utox positive for cannabinoids. This is first time she experienced symptoms of psychosis. Level of function recently declined, but no clear indication of prodromal period of schizophrenia in the past year or more. Pt presents as dysphoric, tearful at times, still paranoid, hearing voices. It also appears pt recently started using cannabinoids. We discussed risks, benefits and alternative treatment options. Pt agreed to start risperidone. Ativan added prn for anxiety s/s to delusions and psychosis. 10/20/2022 Still unclear exactly how to combining patient's symptoms into a diagnosis. Clearly she is overwhelmed and anxious and has history of trauma with PTSD. Also she is mildly disorganized in speech and behavior. Patient agrees to continue taking Risperdal; will move it towards bedtime to help with insomnia. Patient may also benefit from SSRI but will hold off for now especially given the fact that she had not slept in about 7 days and is at risk for triggering manic episode (if not already in one). 10/21 feeling better; slept well, feels more clearminded and less anxious 10/22 continue tx. 10/23 continue tx. 10/24 increase risperidone to 2mg po BID. Patient educated on: diagnosis Reason for contiued inpatient stay Substantial Risk for: inability to function Time Spent With Patient Time: Total time managing care of this patient today ____ minutes.
[2022-10-24 18:00] VITALS: BP 122/69; PULSE 76; RESP 16; TEMP 36.4; O2SAT 98
[2022-10-24] MEDS: risperiDONE 2 MG TABLET PO (20:10)
[2022-10-24] MEDS: traZODone HCL 50 MG TABLET PO (20:10)
--- NOTE | 2022-10-25 | ECG_ITS ---
Test Reason : Tachycardia Blood Pressure : / mmHG Vent. Rate : 097 BPM Atrial Rate : 097 BPM P-R Int : 146 ms QRS Dur : 072 ms QT Int : 338 ms P-R-T Axes : 062 -58 061 degrees QTc Int : 429 ms Normal sinus rhythm Left axis deviation Cannot rule out anterospetal infarct Abnormal ECG No previous ECGs available Referred By: Sarah Fernandes Electronically Signed By:Gurwinder Gonzalez
[2022-10-25] MEDS: traZODone HCL 50 MG TABLET PO ×2 (00:42→19:34)
[2022-10-25] MEDS: Acetaminophen 325 MG TABLET 650 MG PO ×3 (00:43→19:36)
[2022-10-25] MEDS: Magnesium Hydrox/Alum Hydrox 30 ML ORAL.SUSP PO (06:42)
[2022-10-25 07:00] VITALS: BMI 21.5
[2022-10-25] MEDS: risperiDONE 2 MG TABLET PO ×2 (08:31→19:34)
[2022-10-25 08:49] VITALS: BP 130/77; PULSE 89; RESP 18; TEMP 35.9; O2SAT 98
[2022-10-25] MEDS: cloNIDine HCL 0.1 MG TABLET PO ×2 (09:33→19:34)
[2022-10-25 09:40] VITALS: BP 131/73; PULSE 129
[2022-10-25] MEDS: LORazepam 1 MG TABLET PO ×2 (14:23→19:34)
--- NOTE | 2022-10-25 14:23 | P.PNPSI_ITS ---
Subjective Subjective Date of Service: 10/25/22 Reason For Visit: Mood Subjective Notes: Conditional Voluntary Interim History: Pt reports some difficulty staying asleep, confirmed by nursing. She reports feels a bit restless, may be related to risperidone, different than anxious mood. No cogwheel no exam today but noted to be jumpy at times. She denies SI/HI. Speech more linear. She continues with some rastafarian ideas and existential questions, thinking staff talking to her in code. We discussed lowring risperidone to 1mg po daily and 2mg po qhs, adding low dose cogentin. ativan at night. will do ekg tachycardia with no orth hotn. Review of Systems Review of Systems Yes all other systems are reviewed and are negative Constitutional: Reports no additional constitutional complaints, Denies body ache(s), Denies chills, Reports fatigue, Denies fever(s), Denies headache(s) and Denies weakness Eyes: Reports no additional eye complaints and Denies change in vision Reports system reviewed and no additional complaints, except as documented, Denies dizziness, Denies headache(s), Denies nasal congestion, Denies nasal discharge and Denies neck pain Cardiovascular: Reports no additional cardiovascular complaints, Denies chest pain, Denies chest pain at rest, Denies leg edema, Denies lightheadedness and Denies dyspnea Respiratory: Reports no additional respiratory complaints, Denies cough and Denies dyspnea Gastrointestinal: Reports no additional gastrointestinal complaints, Reports abdominal pain (lower abdominal pain, dull pain intermittent), Denies diarrhea, Denies nausea and Denies vomiting Musculoskeletal: Reports no additional musculoskeletal complaints, Denies back pain, Denies arthralgias, Denies joint swelling, Denies neck pain, Denies numbness and Denies tingling Skin/Breast: Reports system reviewed and no additional complaints, except as docu and Denies rash Reports system reviewed and no additional complaints, except as documented, Denies Abnormal speech present, Denies dizziness, Denies headache(s), Denies numbness, Denies tingling and Denies weakness Endocrine: Reports fatigue Mental Status Exam Mental Status Exam Narrative: Appearance: wearing casual clothes, with hoodie over her head; adequate hygiene Behavior: more organized; calm, cooperative Psychomotor: no overt agitation or retardation noted TP: circumstantial TC: problems at home; feeling overwhelmed, needing support Mood: better Affect: congruent, calm SI: Denies HI: Denies AH/VH: Currently denies; recently + AH, mumbles at times Delusions: Seems to be some possible persecutory, paranoid delusions, but patient is vague Insight/judgment: Improved alert, oriented x 3. Diagnostics Vital Signs (24Hr): Vital Signs - 24 hr 10/24/22 18:00 10/25/22 08:49 10/25/22 09:40 Temperature 97.6 F 96.7 F L Pulse Rate 76 89 129 H Respiratory Rate 16 18 Blood Pressure 122/69 130/77 131/73 Pulse Oximetry 98 98 Oxygen Delivery Method Room Air Room Air BMI result Body Mass Index 21.5 Labs 10/19/22 13:11 10/19/22 08:06 Imaging Radiology Impressions: ITS Impressions Pelvic/Transvag US 10/19/22 17:56 IMPRESSION: Overall essentially unremarkable ultrasound appearance of the uterus. Nonspecific finding of multiple tiny peripheral follicles within the right ovary which measures for greater volume than the left. (10 ml vs 2 ml). No definite findings to suggest ovarian torsion, however recommend close clinical follow-up and if there is continued concern, further evaluation with dedicated Doppler ultrasound could be performed. Medications Medications Current Medications Acetaminophen (Acetaminophen 325 Mg Tablet) 650 mg PO Q6H PRN PRN Reason: Headache/Pain Mild Scale (1-3) Last Admin: 10/25/22 06:42 Dose: 650 mg Al Hydroxide/Mg Hydroxide (Magnesium Hydrox/Alum Hydrox 30 Ml Oral.Susp) 30 ml PO Q6H PRN PRN Reason: Heartburn/Nausea Last Admin: 10/25/22 06:42 Dose: 30 ml Benztropine Mesylate (Benztropine Mesylate 0.5 Mg Tablet) 0.5 mg PO BID INO Clonidine HCl (Clonidine Hcl 0.1 Mg Tablet) 0.1 mg PO Q4H PRN; Protocol PRN Reason: anxiety Last Admin: 10/25/22 09:33 Dose: 0.1 mg Clonidine HCl (Clonidine Hcl 0.1 Mg Tablet) 0.1 mg PO BEDTIME INO; Protocol Last Admin: 10/24/22 20:10 Dose: 0.1 mg Hydroxyzine HCl (Hydroxyzine Hcl 25 Mg Tablet) 25 mg PO Q6H PRN PRN Reason: Anxiety Last Admin: 10/20/22 16:02 Dose: 25 mg Lorazepam (Lorazepam 1 Mg Tablet) 1 mg PO BEDTIME INO Magnesium Hydroxide (Milk Of Magnesia 30 Ml Oral.Susp) 30 ml PO DAILY PRN PRN Reason: Constipation Risperidone (Risperidone 2 Mg Tablet) 2 mg PO BEDTIME INO Risperidone (Risperidone 1 Mg Tablet) 1 mg PO DAILY INO Trazodone HCl (Trazodone Hcl 50 Mg Tablet) 50 mg PO BEDTIME INO Last Admin: 10/24/22 20:10 Dose: 50 mg Trazodone HCl (Trazodone Hcl 100 Mg Tablet) 100 mg PO BEDTIME PRN PRN Reason: continued insomnia Allergies Allergies Allergy/AdvReac Type Severity Reaction Status Date / Time apple [APPLES] Allergy Intermediate ITCHING/scratching Verified 10/19/22 04:34 in throat Assessment & Plan Assessment & Plan (1) Psychosis: Status: Acute Code(s): F29 - Unspecified psychosis not due to a substance or known physiological condition (2) PTSD (post-traumatic stress disorder): Status: Acute Code(s): F43.10 - Post-traumatic stress disorder, unspecified Plan Ms. aguilar is a 21 year-old woman with no significant prior hx of psychiatric illness depite hx of trauma. Pt was brought to [facility] ED due to increase paranoid, bizarre behaviors, poor sleep, hearing voices in past 3 weeks. utox positive for cannabinoids. This is first time she experienced symptoms of psychosis. Level of function recently declined, but no clear indication of prodromal period of schizophrenia in the past year or more. Pt presents as dysphoric, tearful at times, still paranoid, hearing voices. It also appears pt recently started using cannabinoids. We discussed risks, benefits and alternative treatment options. Pt agreed to start risperidone. Ativan added prn for anxiety s/s to delusions and psychosis. 10/20/2022 Still unclear exactly how to combining patient's symptoms into a diagnosis. Clearly she is overwhelmed and anxious and has history of trauma with PTSD. Also she is mildly disorganized in speech and behavior. Patient agrees to continue taking Risperdal; will move it towards bedtime to help with insomnia. Patient may also benefit from SSRI but will hold off for now especially given the fact that she had not slept in about 7 days and is at risk for triggering manic episode (if not already in one). 10/21 feeling better; slept well, feels more clearminded and less anxious 10/22 continue tx. 10/23 continue tx. 10/24 increase risperidone to 2mg po BID. 10/25 somewhat restless, jumpy with higher dose of risperidone, no cogwheel. decrease risperidone to 1mg po daily to 2mg po qhs. add cogentin 0.5mg po BID, ativan 1mg po qhs. continue clonidine. will do ekg tachycardia with no s/s of ortho hotn. no chest pain. Patient educated on: diagnosis Informed Consent: understands Reason for contiued inpatient stay Substantial Risk for: inability to function Time Spent With Patient Time: Total time managing care of this patient today ____ minutes.
[2022-10-25 16:44] LABS: Troponin-I High Sensitivity < 3.5 ng/L (<3.5-17.0)
[2022-10-25] MEDS: Benztropine Mesylate 0.5 MG TABLET PO (19:34)
[2022-10-25 20:19] VITALS: BP 178/72; PULSE 144
[2022-10-26 07:49] VITALS: BP 135/75; PULSE 122; RESP 18; TEMP 36.1; O2SAT 97
[2022-10-26] MEDS: Benztropine Mesylate 0.5 MG TABLET PO ×2 (08:05→19:59)
[2022-10-26] MEDS: risperiDONE 1 MG TABLET PO (08:05)
[2022-10-26] MEDS: Acetaminophen 325 MG TABLET 650 MG PO ×2 (08:42→23:30)
--- NOTE | 2022-10-26 09:24 | HO.PSYCHPN ---
Subjective Subjective Date of Service: 10/26/22 Reason For Visit: Mood Subjective Notes: Conditional Voluntary Interim History: Pt reports sleeping better last night. She reported that although did wake up few times feels much more rested this morning and less groggy. She denies overt paranoid, less ideas of others talking to her in code. She reports not hearing voices. She denies SI/HI. She asks about discharged, discussed with SW as well. Given that we still need to schedule appointments, that we're monitoring for side effects and resolution of symptoms, Saturday may be better day than Saturday. Pt in agreement. Medication Compliance: Yes Side effects from medications: No Review of Systems Review of Systems Yes all other systems are reviewed and are negative Constitutional: Reports no additional constitutional complaints, Denies body ache(s), Denies chills, Reports fatigue, Denies fever(s), Denies headache(s) and Denies weakness Eyes: Reports no additional eye complaints and Denies change in vision Reports system reviewed and no additional complaints, except as documented, Denies dizziness, Denies headache(s), Denies nasal congestion, Denies nasal discharge and Denies neck pain Cardiovascular: Reports no additional cardiovascular complaints, Denies chest pain, Denies chest pain at rest, Denies leg edema, Denies lightheadedness and Denies dyspnea Respiratory: Reports no additional respiratory complaints, Denies cough and Denies dyspnea Gastrointestinal: Reports no additional gastrointestinal complaints, Reports abdominal pain (lower abdominal pain, dull pain intermittent), Denies diarrhea, Denies nausea and Denies vomiting Musculoskeletal: Reports no additional musculoskeletal complaints, Denies back pain, Denies arthralgias, Denies joint swelling, Denies neck pain, Denies numbness and Denies tingling Skin/Breast: Reports system reviewed and no additional complaints, except as docu and Denies rash Reports system reviewed and no additional complaints, except as documented, Denies Abnormal speech present, Denies dizziness, Denies headache(s), Denies numbness, Denies tingling and Denies weakness Endocrine: Reports fatigue Mental Status Exam Mental Status Exam Narrative: Appearance: wearing casual clothes, with hoodie over her head; adequate hygiene Behavior: more organized; calm, cooperative Psychomotor: no overt agitation or retardation noted TP: circumstantial TC: problems at home; feeling overwhelmed, needing support Mood: better Affect: congruent, calm SI: Denies HI: Denies AH/VH: Currently denies; recently + AH, mumbles at times Delusions: Seems to be some possible persecutory, paranoid delusions, but patient is vague Insight/judgment: Improved alert, oriented x 3. Diagnostics Vital Signs (24Hr): Vital Signs - 24 hr 10/25/22 09:40 10/25/22 20:19 10/26/22 07:49 Temperature 96.9 F Pulse Rate 129 H 144 H 122 H Respiratory Rate 18 Blood Pressure 131/73 178/72 H 135/75 Pulse Oximetry 97 Oxygen Delivery Method Room Air BMI result Body Mass Index 21.5 Labs 10/19/22 13:11 10/19/22 08:06 Labs: Laboratory Results - last 48 hr 10/25/22 16:03 Troponin I High Sens < 3.5 Imaging Radiology Impressions: ITS Impressions Pelvic/Transvag US 10/19/22 17:56 IMPRESSION: Overall essentially unremarkable ultrasound appearance of the uterus. Nonspecific finding of multiple tiny peripheral follicles within the right ovary which measures for greater volume than the left. (10 ml vs 2 ml). No definite findings to suggest ovarian torsion, however recommend close clinical follow-up and if there is continued concern, further evaluation with dedicated Doppler ultrasound could be performed. Medications Medications Current Medications Acetaminophen (Acetaminophen 325 Mg Tablet) 650 mg PO Q6H PRN PRN Reason: Headache/Pain Mild Scale (1-3) Last Admin: 10/26/22 08:42 Dose: 650 mg Al Hydroxide/Mg Hydroxide (Magnesium Hydrox/Alum Hydrox 30 Ml Oral.Susp) 30 ml PO Q6H PRN PRN Reason: Heartburn/Nausea Last Admin: 10/25/22 06:42 Dose: 30 ml Benztropine Mesylate (Benztropine Mesylate 0.5 Mg Tablet) 0.5 mg PO BID INO Last Admin: 10/26/22 08:05 Dose: 0.5 mg Clonidine HCl (Clonidine Hcl 0.1 Mg Tablet) 0.1 mg PO Q4H PRN; Protocol PRN Reason: anxiety Last Admin: 10/25/22 09:33 Dose: 0.1 mg Clonidine HCl (Clonidine Hcl 0.1 Mg Tablet) 0.1 mg PO BEDTIME INO; Protocol Last Admin: 10/25/22 19:34 Dose: 0.1 mg Hydroxyzine HCl (Hydroxyzine Hcl 25 Mg Tablet) 25 mg PO Q6H PRN PRN Reason: Anxiety Last Admin: 10/20/22 16:02 Dose: 25 mg Lorazepam (Lorazepam 1 Mg Tablet) 1 mg PO BEDTIME [facility] Last Admin: 10/25/22 19:34 Dose: 1 mg Magnesium Hydroxide (Milk Of Magnesia 30 Ml Oral.Susp) 30 ml PO DAILY PRN PRN Reason: Constipation Risperidone (Risperidone 2 Mg Tablet) 2 mg PO BEDTIME INO Last Admin: 10/25/22 19:34 Dose: 2 mg Risperidone (Risperidone 1 Mg Tablet) 1 mg PO DAILY INO Last Admin: 10/26/22 08:05 Dose: 1 mg Trazodone HCl (Trazodone Hcl 50 Mg Tablet) 50 mg PO BEDTIME [facility] Last Admin: 10/25/22 19:34 Dose: 50 mg Trazodone HCl (Trazodone Hcl 100 Mg Tablet) 100 mg PO BEDTIME PRN PRN Reason: continued insomnia Allergies Allergies Allergy/AdvReac Type Severity Reaction Status Date / Time apple [APPLES] Allergy Intermediate ITCHING/scratching Verified 10/19/22 04:34 in throat Assessment & Plan Assessment & Plan (1) Psychosis: Status: Acute Code(s): F29 - Unspecified psychosis not due to a substance or known physiological condition (2) PTSD (post-traumatic stress disorder): Status: Acute Code(s): F43.10 - Post-traumatic stress disorder, unspecified Plan Ms. aguilar is a 21 year-old woman with no significant prior hx of psychiatric illness depite hx of trauma. Pt was brought to [facility] ED due to increase paranoid, bizarre behaviors, poor sleep, hearing voices in past 3 weeks. utox positive for cannabinoids. This is first time she experienced symptoms of psychosis. Level of function recently declined, but no clear indication of prodromal period of schizophrenia in the past year or more. Pt presents as dysphoric, tearful at times, still paranoid, hearing voices. It also appears pt recently started using cannabinoids. We discussed risks, benefits and alternative treatment options. Pt agreed to start risperidone. Ativan added prn for anxiety s/s to delusions and psychosis. 10/20/202210/21 feeling better; slept well, feels more clear minded and less anxious 10/22 continue tx. 10/23 continue tx. 10/24 increase risperidone to 2mg po BID. 10/25 somewhat restless, jumpy with higher dose of risperidone, no cogwheel. decrease risperidone to 1mg po daily to 2mg po qhs. add cogentin 0.5mg po BID, ativan 1mg po qhs. continue clonidine. will do ekg tachycardia with no s/s of ortho hotn. no chest pain. 10/26 continue current medications. plan d/c for next Monday 10/30. better sleep last night. Reason for contiued inpatient stay Substantial Risk for: inability to function Time Spent With Patient Time: Total time managing care of this patient today ____ minutes.
[2022-10-26] MEDS: cloNIDine HCL 0.1 MG TABLET PO ×3 (09:42→19:59)
[2022-10-26 09:43] VITALS: BP 136/76; PULSE 135
[2022-10-26 15:32] VITALS: BP 125/75; PULSE 117
[2022-10-26] MEDS: traZODone HCL 50 MG TABLET PO (19:59)
[2022-10-26] MEDS: LORazepam 1 MG TABLET PO (19:59)
[2022-10-26] MEDS: risperiDONE 2 MG TABLET PO (19:59)
[2022-10-26 20:01] VITALS: BP 143/78; PULSE 114
[2022-10-26] MEDS: traZODone HCL 100 MG TABLET PO (23:31)
[2022-10-26] MEDS: hydrOXYzine HCL 25 MG TABLET PO (23:31)
[2022-10-26] MEDS: Magnesium Hydrox/Alum Hydrox 30 ML ORAL.SUSP PO (23:51)
[2022-10-27] MEDS: cloNIDine HCL 0.1 MG TABLET PO ×3 (02:16→20:34)
[2022-10-27 02:18] VITALS: BP 110/60; PULSE 123; RESP 18; TEMP 35.9; O2SAT 99
[2022-10-27] MEDS: Magnesium Hydrox/Alum Hydrox 30 ML ORAL.SUSP PO (06:44)
[2022-10-27] MEDS: Benztropine Mesylate 0.5 MG TABLET PO ×2 (08:52→20:34)
[2022-10-27] MEDS: risperiDONE 1 MG TABLET PO (08:52)
[2022-10-27 08:53] VITALS: BP 131/68; PULSE 107; RESP 18; TEMP 36.4; O2SAT 94
--- NOTE | 2022-10-27 10:33 | P.PNPSI_ITS ---
Subjective Subjective Date of Service: 10/27/22 Reason For Visit: Mood Interim History: Patient reports she is feeling better. She says she slept well last night and anxiety is better. She is excited for visit with grandparents. Patient says she is feeling more her regular self and that clonidine is helping with anxiety. Patient explains that earlier in admission she was kind of faking about feeling good, but no longer is she faking. Denies SI or AVH Mental Status Exam Mental Status Exam Narrative: Appearance: wearing casual clothes, with hoodie over her head; adequate hygiene Behavior: more organized; calm, cooperative Psychomotor: no overt agitation or retardation noted TP: Goal oriented TC: Treatment, feeling more herself, family Mood: good Affect: congruent, calm SI: Denies HI: Denies AH/VH: Denies Delusions: None expressed Insight/judgment: Improved alert, oriented x 3. Diagnostics Vital Signs (24Hr): Vital Signs - 24 hr 10/26/22 15:32 10/26/22 20:01 10/27/22 02:18 Temperature 96.7 F L Pulse Rate 117 H 114 H 123 H Respiratory Rate 18 Blood Pressure 125/75 143/78 H 110/60 Pulse Oximetry 99 Oxygen Delivery Method Room Air 10/27/22 08:53 Temperature 97.6 F Pulse Rate 107 H Respiratory Rate 18 Blood Pressure 131/68 Pulse Oximetry 94 Oxygen Delivery Method Room Air BMI result Body Mass Index 21.5 Labs 10/19/22 13:11 10/19/22 08:06 Labs: Laboratory Results - last 48 hr 10/25/22 16:03 Troponin I High Sens < 3.5 Imaging Radiology Impressions: ITS Impressions Pelvic/Transvag US 10/19/22 17:56 IMPRESSION: Overall essentially unremarkable ultrasound appearance of the uterus. Nonspecific finding of multiple tiny peripheral follicles within the right ovary which measures for greater volume than the left. (10 ml vs 2 ml). No definite findings to suggest ovarian torsion, however recommend close clinical follow-up and if there is continued concern, further evaluation with dedicated Doppler ultrasound could be performed. Medications Medications Current Medications Acetaminophen (Acetaminophen 325 Mg Tablet) 650 mg PO Q6H PRN PRN Reason: Headache/Pain Mild Scale (1-3) Last Admin: 10/26/22 23:30 Dose: 650 mg Al Hydroxide/Mg Hydroxide (Magnesium Hydrox/Alum Hydrox 30 Ml Oral.Susp) 30 ml PO Q6H PRN PRN Reason: Heartburn/Nausea Last Admin: 10/27/22 06:44 Dose: 30 ml Benztropine Mesylate (Benztropine Mesylate 0.5 Mg Tablet) 0.5 mg PO BID INO Last Admin: 10/27/22 08:52 Dose: 0.5 mg Clonidine HCl (Clonidine Hcl 0.1 Mg Tablet) 0.1 mg PO Q4H PRN; Protocol PRN Reason: anxiety Last Admin: 10/27/22 02:16 Dose: 0.1 mg Clonidine HCl (Clonidine Hcl 0.1 Mg Tablet) 0.1 mg PO BEDTIME INO; Protocol Last Admin: 10/26/22 19:59 Dose: 0.1 mg Hydroxyzine HCl (Hydroxyzine Hcl 25 Mg Tablet) 25 mg PO Q6H PRN PRN Reason: Anxiety Last Admin: 10/26/22 23:31 Dose: 25 mg Lorazepam (Lorazepam 1 Mg Tablet) 1 mg PO BEDTIME INO Last Admin: 10/26/22 19:59 Dose: 1 mg Magnesium Hydroxide (Milk Of Magnesia 30 Ml Oral.Susp) 30 ml PO DAILY PRN PRN Reason: Constipation Risperidone (Risperidone 2 Mg Tablet) 2 mg PO BEDTIME INO Last Admin: 10/26/22 19:59 Dose: 2 mg Risperidone (Risperidone 1 Mg Tablet) 1 mg PO DAILY INO Last Admin: 10/27/22 08:52 Dose: 1 mg Trazodone HCl (Trazodone Hcl 50 Mg Tablet) 50 mg PO BEDTIME INO Last Admin: 10/26/22 19:59 Dose: 50 mg Trazodone HCl (Trazodone Hcl 100 Mg Tablet) 100 mg PO BEDTIME PRN PRN Reason: continued insomnia Last Admin: 10/26/22 23:31 Dose: 100 mg Allergies Allergies Allergy/AdvReac Type Severity Reaction Status Date / Time apple [APPLES] Allergy Intermediate ITCHING/scratching Verified 10/19/22 04:34 in throat Assessment & Plan Assessment & Plan (1) Psychosis: Status: Acute Code(s): F29 - Unspecified psychosis not due to a substance or known physiological condition (2) PTSD (post-traumatic stress disorder): Status: Acute Code(s): F43.10 - Post-traumatic stress disorder, unspecified Plan Ms. aguilar is a 21 year-old woman with no significant prior hx of psychiatric illness depite hx of trauma. Pt was brought to [facility] due to increase paranoid, bizarre behaviors, poor sleep, hearing voices in past 3 weeks. utox positive for cannabinoids. This is first time she experienced symptoms of psychosis. Leve l of function recently declined, but no clear indication of prodromal period of schizophrenia in the past year or more. Pt presents as dysphoric, tearful at times, still paranoid, hearing voices. It also appears pt recently started using cannabinoids. We discussed risks, benefits and alternative treatment options. Pt agreed to start risperidone. Ativan added prn for anxiety s/s to delusions and psychosis. 10/20/202210/21 feeling better; slept well, feels more clear minded and less anxious 10/22 continue tx. 10/23 continue tx. 10/24 increase risperidone to 2mg po BID. 10/25 somewhat restless, jumpy with higher dose of risperidone, no cogwheel. decrease risperidone to 1mg po daily to 2mg po qhs. add cogentin 0.5mg po BID, ativan 1mg po qhs. continue clonidine. will do ekg tachycardia with no s/s of ortho hotn. no chest pain. 10/26 continue current medications. plan d/c for next Monday 10/30. better sleep last night. 10/27 Discussed case with nursing; met with patient; reviewed labs and mildly tachycardic; reviewed primary team providers' progress notes Continue with current treatment plan Patient educated on: medication risk/benefits Informed Consent: understands Reason for contiued inpatient stay Substantial Risk for: med/psych decompensation Time Spent With Patient Time: Total time managing care of this patient today ____ minutes.
[2022-10-27 18:00] VITALS: BP 121/56; PULSE 80; RESP 18; TEMP 536.3; TEMP 997.4; O2SAT 100
[2022-10-27] MEDS: traZODone HCL 50 MG TABLET PO (20:34)
[2022-10-27] MEDS: Acetaminophen 325 MG TABLET 650 MG PO (20:34)
[2022-10-27] MEDS: LORazepam 1 MG TABLET PO (20:34)
[2022-10-27] MEDS: risperiDONE 2 MG TABLET PO (20:34)
[2022-10-28] MEDS: traZODone HCL 100 MG TABLET PO ×2 (01:38→20:06)
[2022-10-28] MEDS: hydrOXYzine HCL 25 MG TABLET PO ×2 (01:38→14:39)
[2022-10-28] MEDS: Acetaminophen 325 MG TABLET 650 MG PO ×4 (03:53→20:39)
[2022-10-28 07:45] VITALS: BP 110/71; PULSE 110; RESP 16; TEMP 36.2; O2SAT 96
[2022-10-28] MEDS: risperiDONE 1 MG TABLET PO (08:42)
[2022-10-28] MEDS: Benztropine Mesylate 0.5 MG TABLET PO ×2 (08:42→20:07)
--- NOTE | 2022-10-28 09:34 | P.PNPSI_ITS ---
Subjective Subjective Date of Service: 10/28/22 Reason For Visit: Mood Interim History: Patient reports that she is doing well. again feels back to regular self for which she is pleased. Still not sleeping great, little hard to fall sleep and then early waking; discussed meds and adjusted them and PRNs available to see if it will help with sleep (see treatment plan) Mental Status Exam Mental Status Exam Narrative: Appearance: wearing casual clothes, with hoodie over her head; adequate hygiene Behavior: more organized; calm, cooperative Psychomotor: no overt agitation or retardation noted TP: Goal oriented TC: Treatment, feeling more herself, family Mood: good Affect: congruent, calm SI: Denies HI: Denies AH/VH: Denies Delusions: None expressed Insight/judgment: Improved alert, oriented x 3. Diagnostics Vital Signs (24Hr): Vital Signs - 24 hr 10/27/22 18:00 Temperature 997.4 F H Pulse Rate 80 Respiratory Rate 18 Blood Pressure 121/56 L Pulse Oximetry 100 Oxygen Delivery Method Room Air BMI result Body Mass Index 21.5 Labs 10/19/22 13:11 10/19/22 08:06 Imaging Radiology Impressions: ITS Impressions Pelvic/Transvag US 10/19/22 17:56 IMPRESSION: Overall essentially unremarkable ultrasound appearance of the uterus. Nonspecific finding of multiple tiny peripheral follicles within the right ovary which measures for greater volume than the left. (10 ml vs 2 ml). No definite findings to suggest ovarian torsion, however recommend close clinical follow-up and if there is continued concern, further evaluation with dedicated Doppler ultrasound could be performed. Medications Medications Current Medications Acetaminophen (Acetaminophen 325 Mg Tablet) 650 mg PO Q6H PRN PRN Reason: Headache/Pain Mild Scale (1-3) Last Admin: 10/28/22 09:08 Dose: 650 mg Al Hydroxide/Mg Hydroxide (Magnesium Hydrox/Alum Hydrox 30 Ml Oral.Susp) 30 ml PO Q6H PRN PRN Reason: Heartburn/Nausea Last Admin: 10/27/22 06:44 Dose: 30 ml Benztropine Mesylate (Benztropine Mesylate 0.5 Mg Tablet) 0.5 mg PO BID INO Last Admin: 10/28/22 08:42 Dose: 0.5 mg Clonidine HCl (Clonidine Hcl 0.1 Mg Tablet) 0.1 mg PO Q4H PRN; Protocol PRN Reason: anxiety Last Admin: 10/27/22 11:15 Dose: 0.1 mg Clonidine HCl (Clonidine Hcl 0.1 Mg Tablet) 0.1 mg PO BEDTIME INO; Protocol Last Admin: 10/27/22 20:34 Dose: 0.1 mg Hydroxyzine HCl (Hydroxyzine Hcl 25 Mg Tablet) 25 mg PO Q6H PRN PRN Reason: Anxiety Last Admin: 10/28/22 01:38 Dose: 25 mg Lorazepam (Lorazepam 1 Mg Tablet) 1 mg PO BEDTIME INO Last Admin: 10/27/22 20:34 Dose: 1 mg Magnesium Hydroxide (Milk Of Magnesia 30 Ml Oral.Susp) 30 ml PO DAILY PRN PRN Reason: Constipation Risperidone (Risperidone 2 Mg Tablet) 2 mg PO BEDTIME INO Last Admin: 10/27/22 20:34 Dose: 2 mg Risperidone (Risperidone 1 Mg Tablet) 1 mg PO DAILY INO Last Admin: 10/28/22 08:42 Dose: 1 mg Trazodone HCl (Trazodone Hcl 50 Mg Tablet) 50 mg PO BEDTIME INO Last Admin: 10/27/22 20:34 Dose: 50 mg Trazodone HCl (Trazodone Hcl 100 Mg Tablet) 100 mg PO BEDTIME PRN PRN Reason: continued insomnia Last Admin: 10/28/22 01:38 Dose: 100 mg Allergies Allergies Allergy/AdvReac Type Severity Reaction Status Date / Time apple [APPLES] Allergy Intermediate ITCHING/scratching Verified 10/19/22 04:34 in throat Assessment & Plan Assessment & Plan (1) Psychosis: Status: Acute Code(s): F29 - Unspecified psychosis not due to a substance or known physiological condition (2) PTSD (post-traumatic stress disorder): Status: Acute Code(s): F43.10 - Post-traumatic stress disorder, unspecified Plan Ms. aguilar is a 21 year-old woman with no significant prior hx of psychiatric illness depite hx of trauma. Pt [place] [facility] due to increase paranoid, bizarre behaviors, poor sleep, hearing voices in past 3 weeks. utox positive for cannabinoids. This is first time she experienced symptoms of psychosis. Level of function recently declined, but no clear indication of prodromal period of schizophrenia in the past year or more. Pt presents as dysphoric, tearful at times, still paranoid, hearing voices. It also appears pt recently started using cannabinoids. We discussed risks, benefits and alternative treatment options. Pt agreed to start risperidone. Ativan added prn for anxiety s/s to d elusions and psychosis. 10/20/202210/21 feeling better; slept well, feels more clear minded and less anxious 10/22 continue tx. 10/23 continue tx. 10/24 increase risperidone to 2mg po BID. 10/25 somewhat restless, jumpy with higher dose of risperidone, no cogwheel. decrease risperidone to 1mg po daily to 2mg po qhs. add cogentin 0.5mg po BID, ativan 1mg po qhs. continue clonidine. will do ekg tachycardia with no s/s of ortho hotn. no chest pain. 10/26 continue current medications. plan d/c for next Monday 10/30. better sleep last night. 10/27 Discussed case with nursing; met with patient; reviewed labs and mildly tachycardic; reviewed primary team providers' progress notes Continue with current treatment plan 10/28 CHANGED to trazodone 100mg qhs with 50mg repeat PRN CHANGED Ativan 1mg to PRN (since may not need it and not great for restful sleep) ADDed Melatonin 3mg PRN for continued insomnia COMBined risperdal to make Risperdal to 3mg qhs (to help with adherence and sleep) CHANGED Cogentin to just 0.5mg qhs (down from BID); not sure if patient needs this Discussed case with nursing; met with patient; reviewed vitals and WNL; Patient educated on: diagnosis and medication risk/benefits Informed Consent: understands Reason for contiued inpatient stay Substantial Risk for: med/psych decompensation Time Spent With Patient Time: Total time managing care of this patient today ____ minutes.
[2022-10-28 18:00] VITALS: BP 130/64; PULSE 82; RESP 18
--- NOTE | 2022-10-28 18:45 | PC.NURSE ---
pt signed a 3-day up on October 31. SW, UR and PHARMACEUTICAL SCIENTIST aware.
[2022-10-28] MEDS: risperiDONE 2 MG TABLET PO (20:06)
[2022-10-28] MEDS: cloNIDine HCL 0.1 MG TABLET PO (20:07)
[2022-10-28] MEDS: LORazepam 1 MG TABLET PO (21:17)
[2022-10-29 06:00] VITALS: BP 118/56; PULSE 122; RESP 18
[2022-10-29] MEDS: Acetaminophen 325 MG TABLET 650 MG PO (09:38)
[2022-10-29 11:45] VITALS: BP 133/68
[2022-10-29] MEDS: cloNIDine HCL 0.1 MG TABLET PO ×2 (11:46→20:37)
--- NOTE | 2022-10-29 18:14 | HO.PSYCHPN ---
Subjective Subjective Date of Service: 10/29/22 Reason For Visit: Mood Subjective Notes: Conditional Voluntary Healthcare Proxy: No Guardianship: No Medical Problems Affecting Mental Status: No Interim History: Reports sleep to be improved. Discussed family history of addictive illness-will stop Lorazepam as she is wanting to stay away from any addictive agents. Planning discharge tomorrow. Feels she is ready. Review of regime and plan of care. Pt verbalized understanding and intent to have follow up care. Will use [facility] for refills. Medication Compliance: Yes Side effects from medications: No Attending Groups: Intermittent Review of Systems Acute medical concerns: No Medical Review of Systems: unchanged Mental Status Exam Mental Status Exam Patient Appearance: Appropriate Patient Orientation: Person, Place, Time and Situation Level of Consciousness: Alert Patient Behavior: Appropriate, Talkative and Good Eye Contact Mood Description: Apprehensive Affect Description: Apprehensive Patient Cognition Impaired: No Ability to Follow Directions: Good Speech Pattern: Spontaneous Speech Memory Description: Intact Hallucinations: None Delusions: Not Present Thought Process: Intact and Goal Oriented Thought Content: positive for Intact and positive for Goal Oriented Judgement: Good Diagnostics Vital Signs (24Hr): Vital Signs - 24 hr 10/29/22 06:00 10/29/22 11:45 Pulse Rate 122 H Respiratory Rate 18 Blood Pressure 118/56 L 133/68 BMI result Body Mass Index 21.5 Labs 10/19/22 13:11 10/19/22 08:06 Imaging Radiology Impressions: ITS Impressions Pelvic/Transvag US 10/19/22 17:56 IMPRESSION: Overall essentially unremarkable ultrasound appearance of the uterus. Nonspecific finding of multiple tiny peripheral follicles within the right ovary which measures for greater volume than the left. (10 ml vs 2 ml). No definite findings to suggest ovarian torsion, however recommend close clinical follow-up and if there is continued concern, further evaluation with dedicated Doppler ultrasound could be performed. Medications Medications Current Medications Acetaminophen (Acetaminophen 325 Mg Tablet) 650 mg PO Q6H PRN PRN Reason: Headache/Pain Mild Scale (1-3) Last Admin: 10/29/22 09:38 Dose: 650 mg Al Hydroxide/Mg Hydroxide (Magnesium Hydrox/Alum Hydrox 30 Ml Oral.Susp) 30 ml PO Q6H PRN PRN Reason: Heartburn/Nausea Last Admin: 10/27/22 06:44 Dose: 30 ml Benztropine Mesylate (Benztropine Mesylate 0.5 Mg Tablet) 0.5 mg PO BEDTIME INO Last Admin: 10/28/22 20:07 Dose: 0.5 mg Clonidine HCl (Clonidine Hcl 0.1 Mg Tablet) 0.1 mg PO Q4H PRN; Protocol PRN Reason: anxiety Last Admin: 10/29/22 11:46 Dose: 0.1 mg Clonidine HCl (Clonidine Hcl 0.1 Mg Tablet) 0.1 mg PO BEDTIME INO; Protocol Last Admin: 10/28/22 20:07 Dose: 0.1 mg Hydroxyzine HCl (Hydroxyzine Hcl 25 Mg Tablet) 25 mg PO Q6H PRN PRN Reason: Anxiety Last Admin: 10/28/22 14:39 Dose: 25 mg Lorazepam (Lorazepam 1 Mg Tablet) 1 mg PO BEDTIME PRN PRN Reason: insomnia Last Admin: 10/28/22 21:17 Dose: 1 mg Magnesium Hydroxide (Milk Of Magnesia 30 Ml Oral.Susp) 30 ml PO DAILY PRN PRN Reason: Constipation Melatonin (Melatonin 3 Mg Tablet) 3 mg PO BEDTIME PRN PRN Reason: continued insomnia Risperidone (Risperidone 3 Mg Tablet) 3 mg PO BEDTIME INO Trazodone HCl (Trazodone Hcl 50 Mg Tablet) 50 mg PO BEDTIME PRN PRN Reason: continued insomnia Trazodone HCl (Trazodone Hcl 100 Mg Tablet) 100 mg PO BEDTIME INO Last Admin: 10/28/22 20:06 Dose: 100 mg Allergies Allergies Allergy/AdvReac Type Severity Reaction Status Date / Time apple [APPLES] Allergy Intermediate ITCHING/scratching Verified 10/19/22 04:34 in throat Assessment & Plan Assessment & Plan (1) Psychosis: Status: Acute Code(s): F29 - Unspecified psychosis not due to a substance or known physiological condition (2) PTSD (post-traumatic stress disorder): Status: Acute Code(s): F43.10 - Post-traumatic stress disorder, unspecified Plan Ms. aguilar is a 21 year-old woman with no significant prior hx of psychiatric illness depite hx of trauma. Pt was brought to [facility] [place] [facility] due to increase paranoid, bizarre behaviors, poor sleep, hearing voices in past 3 weeks. utox positive for cannabinoids. This is first time she experienced symptoms of psychosis. Level of function recently declined, but no clear indication of prodromal period of schizophrenia in the past year or more. Pt presents as dysphoric, tearful at times, still paranoid, hearing voices. It also appears pt recently started using cannabinoids. We discussed risks, benefits and alternative treatment options. Pt agreed to start risperidone. Ativan added prn for anxiety s/s to delusions and psychosis. 10/20/202210/21 feeling better; slept well, feels more clear minded and less anxious 10/22 continue tx. 10/23 continue tx. 10/24 increase risperidone to 2mg po BID. 10/25 somewhat restless, jumpy with higher dose of risperidone, no cogwheel. decrease risperidone to 1mg po daily to 2mg po qhs. add cogentin 0.5mg po BID, ativan 1mg po qhs. continue clonidine. will do ekg tachycardia with no s/s of ortho hotn. no chest pain. 10/26 continue current medications. plan d/c for next Monday 10/30. better sleep last night. 10/27 Discussed case with nursing; met with patient; reviewed labs and mildly tachycardic; reviewed primary team providers' progress notes Continue with current treatment plan 10/28 CHANGED to trazodone 100mg qhs with 50mg repeat PRN CHANGED Ativan 1mg to PRN (since may not need it and not great for restful sleep) ADDed Melatonin 3mg PRN for continued insomnia COMBined risperdal to make Risperdal to 3mg qhs (to help with adherence and sleep) CHANGED Cogentin to just 0.5mg qhs (down from BID); not sure if patient needs this Discussed case with nursing; met with patient; reviewed vitals and WNL; 10/29/22 Discharge 10/30/22 per plan Patient educated on: medication risk/benefits Informed Consent: understands Reason for contiued inpatient stay Substantial Risk for: stable for discharge Time Spent With Patient Time: Total time managing care of this patient today __30__ minutes.
[2022-10-29 20:35] VITALS: BP 149/65; PULSE 113; TEMP 36.3
[2022-10-29] MEDS: traZODone HCL 100 MG TABLET PO (20:36)
[2022-10-29] MEDS: Benztropine Mesylate 0.5 MG TABLET PO (20:38)
[2022-10-29] MEDS: risperiDONE 3 MG TABLET PO (20:38)
[2022-10-30 09:40] VITALS: BP 126/58; PULSE 99; RESP 16; TEMP 36.3; O2SAT 98
[2022-10-30 10:49] VITALS: BP 150/65; PULSE 103
[2022-10-30] MEDS: cloNIDine HCL 0.1 MG TABLET PO (10:50)
--- NOTE | 2022-10-30 12:38 | P.DS_ITS ---
DS: Providers Provider Date of Service: 10/30/22 Date of admission: 10/18/22 17:09 Date of discharge: 10/30/22 Primary care physician: Latoya Lopez DO Admitting clinician: Sarah Fernandes Attending physician on admission: Noe Meehan Attending physician on discharge: Noe Meehan Discharging clinician: Sophie Morrison DS: Diagnosis Discharge Diagnosis (1) Psychosis: Status: Acute (2) PTSD (post-traumatic stress disorder): Status: Acute DS: Medications Discharge Medications Home Medications: Previous Rx's Medication Instructions Recorded benztropine 0.5 mg tablet 0.5 mg PO BEDTIME #15 tabs 10/29/22 clonidine HCl 0.1 mg tablet 0.1 mg PO BEDTIME #15 tabs 10/29/22 hydroxyzine HCl 25 mg tablet 25 mg PO Q6H PRN Anxiety #60 tabs 10/29/22 melatonin 3 mg tablet 3 mg PO BEDTIME PRN continued 10/29/22 insomnia #15 tabs risperidone 3 mg tablet 3 mg PO BEDTIME #15 tabs 10/29/22 trazodone 100 mg tablet 100 mg PO BEDTIME #15 tabs 10/29/22 quetiapine 25 mg tablet (Seroquel) 25 mg PO BID PRN anxiety #14 tabs 10/30/22 Mental Status Exam Mental Status Exam Patient Appearance: Appropriate Patient Orientation: Person, Place, Time and Situation Level of Consciousness: Alert Patient Behavior: Appropriate, Talkative, Cooperative and Good Eye Contact Mood Description: Anxious and Apprehensive Affect Description: Constricted Ability to Follow Directions: Good Speech Pattern: Spontaneous Speech Memory Description: Intact Hallucinations: None Delusions: Not Present Thought Process: Intact and Goal Oriented Thought Content: positive for Intact and positive for Goal Oriented Judgement: Good Data Data Completed and Pending Completed studies during hospitalization [Text1]: 10/25/22 16:03 Troponin I High Sens < 3.5 10/17/22 Unknown Urine clean catch - Urine qiu top Urine Culture - Final No growth. Imaging Diagnostic Imaging Impressions Pelvic/Transvag US 10/19/22 17:56 IMPRESSION: Overall essentially unremarkable ultrasound appearance of the uterus. Nonspecific finding of multiple tiny peripheral follicles within the right ovary which measures for greater volume than the left. (10 ml vs 2 ml). No definite findings to suggest ovarian torsion, however recommend close clinical follow-up and if there is continued concern, further evaluation with dedicated Doppler ultrasound could be performed. DS: Summary Hospital Course Hospital Course: Admission to adult psychiatry for exacerbation of sx of psychosis, PTSD Risperdal, Benztropine, Clonidine, Trazodone, Melatonin initiated and titrated with efficacy and tolerance. Pt is discharged with a small trial of low dose Seroquel-she may discuss a change from Clonidine to Seroquel as she does feel tired after taking the Clonidine. Pt will call/return as needed. Time spent discussing smoking cessation with patient: 3 to 10 minutes Status at Discharge Functional status at discharge: independent ambulation Overall status at discharge: patient is back to baseline Time Spent with Patient Time attestation: Total time managing care of this patient today ____ minutes. 35 Time spent: Greater than 30 minutes Discharge Plan Discharge Anticipated Discharge Date/Time: 10/30/22 12:00 Patient Disposition: Home, Self-Care Discharge Diagnosis: PTSD Referrals: jacob Ball [Other] - 11/07/22 12:00 pm (Initial Diagnostic evaluation for therapy. Appointment is in person at [facility]. Please arrive 15 minutes prior to appointment to complete paperwork. Remember to ask about your case management services at initial appointment.) Manasa Pruitt [Other] - 11/21/22 10:00 am (Initial Psychiatric evaluation by psychiatric medication provider. Appointment is by tele-health. Please check your email for a link to the scheduled appointment.) Manasa Pruitt [Other] - 12/19/22 10:00 am (Medication Management appointment Appointment is by tele-health. Please check your email for a link to the a ppointment.) Latoya Lopez DO [Primary Care Provider] - 11/05/22 2:45 pm (IN OFFICE WITH DR. MANN) Discharge Medications: New clonidine HCl 0.1 mg Tablet 0.1 mg PO BEDTIME Qty: 15 1RF Protocol: Hold for SBP< HOLD for SBP < : 90 benztropine 0.5 mg Tablet 0.5 mg PO BEDTIME Qty: 15 1RF melatonin 3 mg Tablet 3 mg PO BEDTIME PRN (Reason: continued insomnia) Qty: 15 1RF risperidone 3 mg Tablet 3 mg PO BEDTIME Qty: 15 1RF trazodone 100 mg Tablet 100 mg PO BEDTIME Qty: 15 1RF hydroxyzine HCl 25 mg Tablet 25 mg PO Q6H PRN (Reason: Anxiety) Qty: 60 1RF quetiapine [Seroquel] 25 mg tablet 25 mg PO BID PRN (Reason: anxiety) Qty: 14 1RF Discharge Orders: Discharge Order (Routine); Ordered 10/30/22 Ordered By: Sophie Morrison Diet: Advance to usual diet Activity on Discharge: As tolerated Stand Alone Forms: Patient Portal Discharge page, Community Support Print Language: Bermudian Care Plan Goals: Maintain mood and safe behaviors Take medications as directed Practice coping skills Connect with out patient providers Health Concerns: Stable mood and behaviors Plan of Treatment: Follow up with out patient provider appointments Take medications as directed Call/Return as needed Assessment: Pt interviewed prior to discharge and found to be fully oriented and without any SI/HI. Pt has insight and demonstrates good judgment in terms of wanting to pursue treatment Pt is not in imminent risk of harm to self or others and has a safety plan that includes presenting to the closest ER or calling 911 if feeling unsafe Pt has been observed closely by the team throughout admission Pt has not engaged in any behaviors that suggest dangerousness to self or others and has demonstrated appropriate behaviors and impulse control. Discharge Date/Time: 10/30/22 13:20
== END 2022-10-30 13:20 | disposition home or self-care (01) | DRG 751 ==
LOC: HO.ED 10-18 13:47 → HO.PM5 10-18 17:14
PROVIDERS: Nurse Practitioner Family; Social Worker; Student in an Organized Health Care Education/Training Program; Admitting Provider Psychiatry & Neurology Psychiatry; Emergency Provider Emergency Medicine Emergency Medical Services; PCP Pediatrics; Visit Provider Clinical Nurse Specialist Psychiatric/Mental Health, Adult
DX: F29 Unspecified psychosis not due to a substance or known physiological condition (principal); F43.10 Post-traumatic stress disorder, unspecified; N39.0 Urinary tract infection, site not specified; Z23 Encounter for immunization; Z20.822 Contact with and (suspected) exposure to COVID-19; Z79.899 Other long term (current) drug therapy
CPT/HCPCS: 36415; 76830; 76856; 80048; 80053; 80061; 80076; 80143; 80179; 80307; 81001; 81025; 82077; 84443; 84484; 85025; 87086; 87635; 90686; 93005; 99285; S9485

== ENCOUNTER 2022-11-02 14:38 | Emergency (ER) | payer MEDICAID, SELFPAY ==
[2022-11-02 14:45] VITALS: BP 151/92; PULSE 118; RESP 20; TEMP 36.6; O2SAT 97; BMI 21.4
--- NOTE | 2022-11-02 14:47 | ED_ITS ---
HPI - Chest Pain General Chief Complaint: Chest Pain <Fabi Nj CNP - Last Filed: 11/02/22 14:51> Stated Complaint: chest pain <Fabi Nj CNP - Last Filed: 11/02/22 14:51> Time Seen by Provider: 11/02/22 16:02 <Fabi Nj CNP - Last Filed: 11/02/22 14:51> Source: patient and family (brother) <SAI Diez - Last Filed: 11/02/22 21:14> Mode of arrival: ambulatory <SAI Diez Last Filed: 11/02/22 21:14> Limitations: no limitations <SAI Diez Last Filed: 11/02/22 21:14> History of Present Illness HPI narrative: Patient is a 21 year old assigned female at with a history of bipolar disorder with recent hospitalization presenting to the emergency department today with chest pain and feeling different. Patient states that earlier she had chest pain and now she just feels different. Patient's brother states that she has been acting a bit different since being on seroquel and he w ould like that medication to be switched out for something else. Patient's brother states that the patient was recently admitted for an acute psychotic episode and was just discharged 3 days ago. Patient denies any thoughts of harming herself or others, dizziness, lightheadedness, abdominal pain, nausea, vomiting, fever, chills, blurry vision, double vision, loss of vision, difficulty breathing, shortness of breath, back pain, night sweats, pain with urination, increased urinary frequency, increased urinary urgency, blood in her urine or stool, syncope or a near syncopal episode, recent trauma or falls, bowel incontinence, bladder incontinence, bowel retention, bladder retention, or any other complaints at this time. <SAI Diez Last Filed: 11/02/22 21:14> Pain radiation: none <SAI Diez Last Filed: 11/02/22 21:14> Relieving factors: nothing <SAI Diez Last Filed: 11/02/22 21:14> Exacerbating factors: nothing <SAI Diez Last Filed: 11/02/22 21:14> Treatment prior to arrival: none <SAI Diez - Last Filed: 11/02/22 21:14> Risk Factors Thoracic aortic dissection risk factors: none <SAI Diez Last Filed: 11/02/22 21:14> Related Data Home Medications: Previous Rx's Medication Instructions Recorded benztropine 0.5 mg tablet 0.5 mg PO BEDTIME #15 tabs 10/29/22 clonidine HCl 0.1 mg tablet 0.1 mg PO BEDTIME #15 tabs 10/29/22 hydroxyzine HCl 25 mg tablet 25 mg PO Q6H PRN Anxiety #60 tabs 10/29/22 melatonin 3 mg tablet 3 mg PO BEDTIME PRN continued 10/29/22 insomnia #15 tabs trazodone 100 mg tablet 100 mg PO BEDTIME #15 tabs 10/29/22 risperidone 2 mg tablet 2 mg PO BEDTIME 30 days #30 tabs 11/02/22 <Fabi Nj CNP - Last Filed: 11/02/22 14:51> Allergies/Adverse Reactions: Allergies Allergy/AdvReac Type Severity Reaction Status Date / Time apple [APPLES] Allergy Intermediate ITCHING/scratching Verified 11/02/22 14:55 in throat <Fabi Nj CNP - Last Filed: 11/02/22 14:51> Review of Systems Constitutional: Constitutional: Reports no additional constitutional complaints, Denies chills, Denies fever(s) and Denies night sweats <SAI Diez Last Filed: 11/02/22 21:14> Eyes: Eyes: Reports no additional eye complaints, Denies blurry vision, Denies change in vision, Denies diplopia, Denies eye discharge, Denies loss of vision and Denies eye pain <SAI Diez - Last Filed: 11/02/22 21:14> ENT: Denies dizziness <SAI Diez - Last Filed: 11/02/22 21:14> Cardiovascular: Cardiovascular: Reports no additional cardiovascular complaints, Reports chest pain (previously - now resolved), Denies lightheadedness, Denies Loss of Consciousness and Denies dyspnea <SAI Diez Last Filed: 11/02/22 21:14> Respiratory: Respiratory: Reports no additional respiratory complaints and Denies dyspnea <SAI Diez - Last Filed: 11/02/22 21:14> Gastrointestinal: Gastrointestinal: Reports no additional gastrointestinal complaints, Denies abdominal pain, Denies melena, Denies hematochezia, Denies change in bowel habits and Denies change in stool character <SAI Diez - Last Filed: 11/02/22 21:14> Genitourinary: Genitourinary: Denies hematuria, Denies urinary frequency, Denies dysuria, Denies urinary incontinence, Denies urinary hesitancy and Denies urinary urgency <SAI Diez - Last Filed: 11/02/22 21:14> Musculoskeletal: Musculoskeletal: Reports no additional musculoskeletal complaints, Denies numbness and Denies tingling <SAI Diez - Last Filed: 11/02/22 21:14> Neurologic: Denies dizziness, Denies loss of vision, Denies numbness and Denies tingling <SAI Diez - Last Filed: 11/02/22 21:14> Psychiatric: Psychiatric: Reports no additional psychiatric complaints <SAI Diez - Last Filed: 11/02/22 21:14> Comments: feeling off <SAI Diez - Last Filed: 11/02/22 21:14> Endocrine: Endocrine: Reports no additional endocrine complaints <SAI Diez - Last Filed: 11/02/22 21:14> Hematologic/Lymphatic: Hematologic/Lymphatic: Reports no additional hematologic/lymphatic complaints <SAI Diez - Last Filed: 11/02/22 21:14> Allergic/Immunologic: Allergic/Immunologic: Reports no additional allergic/immunologic complaints <SAI Diez - Last Filed: 11/02/22 21:14> PMFSH Past Medical History Attestation statement: The following information was validated with the patient. <SAI Diez - Last Filed: 11/02/22 21:14> Source: old records reviewed, obtained from family (patient's brother) and nursing notes reviewed <SAI Diez - Last Filed: 11/02/22 21:14> Medical History: Medical History No known health problems PTSD (post-traumatic stress disorder) <Fabi Nj CNP - Last Filed: 11/02/22 14:51> Surgical History: Surgical History No history of previous surgery <Fabi Nj CNP - Last Filed: 11/02/22 14:51> Social History Social History: Social History Household Members: Family Housing: House Do you presently have visiting nurse or other home services: No Alcohol intake: unknown Patient Tobacco Use Status: Never used Tobacco Tobacco use type: Cigarette e-Cigarette/Vaping Use: Currently Using Substance Use Type: Marijuana Advance Directives: No Advance Directives Information Provided: Yes service: No Sexual orientation: Straight/Heterosexual <Fabi Nj CNP - Last Filed: 11/02/22 14:51> Physical Exam Vital Signs: Vital Signs: Last Vital Signs Temp 97.8 F 11/02/22 14:45 Pulse 118 H 11/02/22 14:45 Resp 11/02/22 14:45 BP 151/92 H 11/02/22 14:45 Pulse Ox 97 11/02/22 14:45 O2 Del Method 11/02/22 14:45 BMI result Body Mass Index 21.4 <Fabisonia Shin LORRIE Nj - Last Filed: 11/02/22 14:51> Vital Signs: Last Vital Signs Temp 97.8 F 11/02/22 14:45 Pulse 118 H 11/02/22 14:45 Resp 11/02/22 14:45 BP 151/92 H 11/02/22 14:45 Pulse Ox 97 11/02/22 14:45 O2 Del Method 11/02/22 14:45 BMI result Body Mass Index 21.4 <SAI Diez - Last Filed: 11/02/22 21:14> Const: General: cooperative, no acute distress, alert and awake <SAI Diez - Last Filed: 11/02/22 21:14> Nutritional Appearance: well nourished <SAI Diez - Last Filed: 11/02/22 21:14> Orientation/consciousness: patient oriented x3 <Amie Newtonvandana AL - Last Filed: 11/02/22 21:14> Limitations: no limitations <Amie Newtonvandana AL - Last Filed: 11/02/22 21:14> HEENT: Head: Yes normal to inspection and Yes atraumatic <Amie Newtonvandana AL - Last Filed: 11/02/22 21:14> Ears: hearing grossly normal bilaterally and external ears normal <Amie Newtonvandana AL - Last Filed: 11/02/22 21:14> General nose exam: Normal external nose present, no nasal discharge noted and no epistaxis <Amie Newtonvandana AL - Last Filed: 11/02/22 21:14> Face and sinus: Yes normal facial exam, No abrasion and No laceration <Amie Newtonvandana AL - Last Filed: 11/02/22 21:14> Mouth: Normal oral and palatal mucosa present, no drooling and no muffled voice <Amieaditya Newtonvandana AL - Last Filed: 11/02/22 21:14> Eyes: General: appearance normal, both eyes and all related structures <Amie Newtonvandana AL - Last Filed: 11/02/22 21:14> Periorbital: periorbital findings normal <Amie Newtonvandana AL - Last Filed: 11/02/22 21:14> Eyelids: Yes eyelids normal <Amie Newtonvandana AL - Last Filed: 11/02/22 21:14> Conjunctivae: conjunctivae normal <Amie Newtonvandana AL - Last Filed: 11/02/22 21:14> Pupils: Equal, round and reactive pupils present <Amie Yue AL - Last Filed: 11/02/22 21:14> EOM: EOMs intact bilaterally <Amie Newtonvandana AL - Last Filed: 11/02/22 21:14> Neck: Neck: Yes normal visual inspection, Yes full ROM and Yes no lymphadenopathy <Amie Yue AL - Last Filed: 11/02/22 21:14> Chest: Chest palpation & inspection: normal inspection of the chest <Amie Turner AL - Last Filed: 11/02/22 21:14> Resp: Effort & Inspection: normal respiratory effort and able to speak in complete sentences <Amie Turner PA - Last Filed: 11/02/22 21:14> Auscultation: clear to auscultation bilaterally <Amie Turner PA - Last Filed: 11/02/22 21:14> Cardio: Rate: regular rate <Amie Turner PA - Last Filed: 11/02/22 21:14> Rhythm: regular rhythm <Amie Turner AL - Last Filed: 11/02/22 21:14> GI: Inspection: Yes normal to inspection <Amie Turner PA - Last Filed: 11/02/22 21:14> Palpation (GI): Soft to palpation, not firm, nontender, no guarding and not rigid <Amie Turner PA - Last Filed: 11/02/22 21:14> Neuro: General: patient oriented x3 and moves all extremities <Amie Turner AL - Last Filed: 11/02/22 21:14> Cranial nerves: Yes Equal, round and reactive pupils present <Amie Turner AL - Last Filed: 11/02/22 21:14> Cognition (Neuro): normal cognition <Amie Turner AL - Last Filed: 11/02/22 21:14> Motor exam (neuro): 5/5 motor strength present throughout <Amie Turner PA - Last Filed: 11/02/22 21:14> Sensory Exam: Normal double simultaneous stimulation for sensation <Amie Turner PA - Last Filed: 11/02/22 21:14> Coordination: [id number] test normal <Amie Turner AL - Last Filed: 11/02/22 21:14> Extrem: General: Yes normal to inspection, Yes full ROM and Yes capillary refill normal <Amie Turner PA - Last Filed: 11/02/22 21:14> Psych: Appearance: grossly normal <Amie Turner PA - Last Filed: 11/02/22 21:14> Mental Status: mental status grossly normal <Amie Turner PA - Last Filed: 11/02/22 21:14> Affect: normal affect <Amie Turner PA - Last Filed: 11/02/22 21:14> Attitude: cooperative <Amie Turner PA - Last Filed: 11/02/22 21:14> Thought process: Normal thought process present <SAI Diez - Last Filed: 11/02/22 21:14> Thought content: Normal thought content present <SAI Diez - Last Filed: 11/02/22 21:14> Insight: Good insight present (Psych) <SAI Diez - Last Filed: 11/02/22 21:14> Course Course Course Narrative: This is an RME: Additional HPI, ROS, PE not included below will be def erred to primary provider. Patient is a 21-year-old female presents to the emergency department Reporting chest pain, I don't know when it started , vague. Difficulty describing symptoms, tearful, states I feel unheard . Difficulty obtaining ROS. Presents with her brother, who reports she was just discharged 2 days ago after recent 2 week admission for psych, new RX for quetiapine, trazodone, klonopin, risperdal. Plan: EKG, labs, viral testing <Fabi Nj CNP - Last Filed: 11/02/22 14:51> Medications Administered Discontinued Medications Generic Name Dose Route Start Last Admin Trade Name Freq PRN Reason Stop Dose Admin Acetaminophen 975 mg 11/02/22 15:53 11/02/22 15:58 Acetaminophen 325 Mg Tablet PO 11/02/22 15:54 975 mg ONCE ONE Administration Lorazepam 2 mg 11/02/22 17:10 11/02/22 17:33 Lorazepam 1 Mg Tablet PO 11/02/22 17:11 2 mg ONCE ONE Administration <Fabi Nj CNP - Last Filed: 11/02/22 14:51> Medications Administered Discontinued Medications Generic Name Dose Route Start Last Admin Trade Name Freq PRN Reason Stop Dose Admin Acetaminophen 975 mg 11/02/22 15:53 11/02/22 15:58 Acetaminophen 325 Mg Tablet PO 11/02/22 15:54 975 mg ONCE ONE Administration Lorazepam 2 mg 11/02/22 17:10 11/02/22 17:33 Lorazepam 1 Mg Tablet PO 11/02/22 17:11 2 mg ONCE ONE Administration <SAI Diez - Last Filed: 11/02/22 21:14> Medical Decision Making Medical Decision Making MDM Narrative: Patient is a 21 year old assigned female at with a history of bipolar disorder presenting to the emergency department today with resolved chest pain and feeling off . Patient's physical exam was unremarkable. Patient's blood work was unremarkable. Patient's urine showed no acute process. Patient's EKG was unremarkable. I explained my physical exam findings as well as all test results to the patient and the patient's brother. I answered all questions asked by the patient and the patient's brother. I spoke to the psychiatry team who evaluated the patient and made medication changes as reflected in the discharge instructions. Patient received PO Ativan which she stated helped her symptoms significantly. I stressed the importance of the patient taking her medication as prescribed. I stressed the importance of the patient following up with her primary care provider. I stressed the importance of the patient returning to the emergency department immediately if her symptoms were to worsen or if she were to develop any dizziness, shortness of breath, difficulty breathing, chest pain, blurry vision, loss of vision, nausea, vo miting, abdominal pain, fever, chills, back pain, or any other complaints. Patient and the patient's brother verbalized agreement and understanding with this treatment plan and discharge. <SAI Diez - Last Filed: 11/02/22 21:14> Differential Diagnosis Differential Diagnoses: The differential diagnosis associated with the presentation includes <SAI Diez - Last Filed: 11/02/22 21:14> anxiety, psychosis, medication effects <SAI Diez - Last Filed: 11/02/22 21:14> Consult Healthcare Provider Management of the patient was discussed with: Registered Nurse First Assistant (spoke with psychiatry as documented elswhere in this chart) <SAI Diez - Last Filed: 11/02/22 21:14> Lab Data MDM Lab Attestation statement: I reviewed the patient's lab results. <SAI Diez - Last Filed: 11/02/22 21:14> Result Diagrams: 11/02/22 15:03 11/02/22 15:03 <Fabi Nj CNP - Last Filed: 11/02/22 14:51> Labs: Lab Results 11/02/22 11/02/22 11/02/22 Range/Units 15:03 15:03 15:03 WBC 9.7 (4.8-10.8) X10*3/uL RBC 4.50 (4.20-5.50) X10*6/uL Hgb 12.9 (12.0-16.0) g/dl Hct 38.7 (37.0-47.0) % MCV 86.0 (80.0-98.0) fL MCH 28.7 (27.0-33.0) pg MCHC 33.3 (31.0-35.0) g/dl RDW 13.6 (11.0-16.0) % Plt Count 293 (160-400) X10*3/uL MPV 11.4 (9.4-12.3) fL Immature Gran % (Auto) 0.4 (0.0-0.4) % Neut % (Auto) 77.0 H (45-73) % Lymph % (Auto) 15.3 L (20-40) % Grimes % (Auto) 5.9 (2-11) % Eos % (Auto) 0.8 (0-4) % Baso % (Auto) 0.6 (0-2) % Lymph # (Auto) 1.5 (1.2-4.9) X10*3/uL Grimes # (Auto) 0.6 (0.1-1.2) X10*3/uL Eos # (Auto) 0.1 (0.0-0.4) X10*3/uL Baso # (Auto) 0.1 (0.0-0.2) X10*3/uL Abs Immat Gran (auto) 0.04 H (0.00-0.03) X10*3/uL Absolute Neuts (auto) 7.5 (2.0-8.3) x10*3/uL Absolute Nucleated RBC 0.000 (0.0-0.012) X10*3/uL Nucleated RBC % (auto) 0.0 (0.0-0.2) /100WBC PT (10.0-13.1) SEC INR (0.9-1.1) Sodium 140 (135-145) mmol/L Potassium 4.1 (3.3-5.1) mmol/L Chloride 106 (96-108) mmol/L Carbon Dioxide 26 (22-29) mmol/L Anion Gap 12 (12-20) BUN 5 L (9-16) mg/dL Creatinine 0.62 (0.5-1.4) mg/dL Estim Creat Clear Calc 126.0 Estimated GFR > 60 Random Glucose 110 (60-115) mg/dL Calcium 9.1 (8.4-10.2) mg/dL Total Bilirubin 0.3 (0.0-1.0) mg/dL AST 24 (5-31) U/L ALT 38 H (0-31) U/L Alkaline Phosphatase 64 (39-117) U/L Troponin I High Sens < 3.5 (<3.5-17.0) ng/L Total Protein 7.0 (6.5-8.0) g/dL Albumin 4.1 (3.5-5.0) g/dL Urine Color Urine Appearance Urine pH (5.0-9.0) Ur Specific [place] (1.005-1.025) Urine Protein (Neg-Trace) mg/dL Urine Glucose (UA) (Negative) mg/dL Urine Ketones (Negative) mg/dL Urine Blood (Negative) Urine Nitrite (Negative) Ur Leukocyte Esterase (Negative) Urine RBC (0-2) /HPF Urine WBC (0-5) /HPF Ur Squamous Epith Cells (0-2) /HPF Urine Bacteria (None Seen) Hyaline Casts (0-2) /LPF Urine Test (NEGATIVE) COVID-19 ([facility]) (Negative) COVID-19 Clin Com Influenza Type A ([facility]) (Negative) Influenza Type B ([facility]) (Negative) Influenza A & B Note 11/02/22 11/02/22 11/02/22 Range/Units 15:03 15:03 15:03 WBC (4.8-10.8) X10*3/uL RBC (4.20-5.50) X10*6/uL Hgb (12.0-16.0) g/dl Hct (37.0-47.0) % MCV (80.0-98.0) fL MCH (27.0-33.0) pg MCHC (31.0-35.0) g/dl RDW (11.0-16.0) % Plt Count (160-400) X10*3/uL MPV (9.4-12.3) fL Immature Gran % (Auto) (0.0-0.4) % Neut % (Auto) (45-73) % Lymph % (Auto) (20-40) % Grimes % (Auto) (2-11) % Eos % (Auto) (0-4) % Baso % (Auto) (0-2) % Lymph # (Auto) (1.2-4.9) X10*3/uL Grimes # (Auto) (0.1-1.2) X10*3/uL Eos # (Auto) (0.0-0.4) X10*3/uL Baso # (Auto) (0.0-0.2) X10*3/uL Abs Immat Gran (auto) (0.00-0.03) X10*3/uL Absolute Neuts (auto) (2.0-8.3) x10*3/uL Absolute Nucleated RBC (0.0-0.012) X10*3/uL Nucleated RBC % (auto) (0.0-0.2) /100WBC PT 12.8 (10.0-13.1) SEC INR 1.1 (0.9-1.1) Sodium (135-145) mmol/L Potassium (3.3-5.1) mmol/L Chloride (96-108) mmol/L Carbon Dioxide (22-29) mmol/L Anion Gap (12-20) BUN (9-16) mg/dL Creatinine (0.5-1.4) mg/dL Estim Creat Clear Calc Estimated GFR Random Glucose (60-115) mg/dL Calcium (8.4-10.2) mg/dL Total Bilirubin (0.0-1.0) mg/dL AST (5-31) U/L ALT (0-31) U/L Alkaline Phosphatase (39-117) U/L Troponin I High Sens (<3.5-17.0) ng/L Total Protein (6.5-8.0) g/dL Albumin (3.5-5.0) g/dL Urine Color Urine Appearance Urine pH (5.0-9.0) Ur Specific [place] (1.005-1.025) Urine Protein (Neg-Trace) mg/dL Urine Glucose (UA) (Negative) mg/dL Urine Ketones (Negative) mg/dL Urine Blood (Negative) Urine Nitrite (Negative) Ur Leukocyte Esterase (Negative) Urine RBC (0-2) /HPF Urine WBC (0-5) /HPF Ur Squamous Epith Cells (0-2) /HPF Urine Bacteria (None Seen) Hyaline Casts (0-2) /LPF Urine Test (NEGATIVE) COVID-19 ([facility]) Negative (Negative) COVID-19 Clin Com See Note Influenza Type A ([facility]) Negative (Negative) Influenza Type B ([facility]) Negative (Negative) Influenza A & B Note See Note 11/02/22 11/02/22 Range/Units 15:03 15:03 WBC (4.8-10.8) X10*3/uL RBC (4.20-5.50) X10*6/uL Hgb (12.0-16.0) g/dl Hct (37.0-47.0) % MCV (80.0-98.0) fL MCH (27.0-33.0) pg MCHC (31.0-35.0) g/dl RDW (11.0-16.0) % Plt Count (160-400) X10*3/uL MPV (9.4-12.3) fL Immature Gran % (Auto) (0.0-0.4) % Neut % (Auto) (45-73) % Lymph % (Auto) (20-40) % Grimes % (Auto) (2-11) % Eos % (Auto) (0-4) % Baso % (Auto) (0-2) % Lymph # (Auto) (1.2-4.9) X10*3/uL Grimes # (Auto) (0.1-1.2) X10*3/uL Eos # (Auto) (0.0-0.4) X10*3/uL Baso # (Auto) (0.0-0.2) X10*3/uL Abs Immat Gran (auto) (0.00-0.03) X10*3/uL Absolute Neuts (auto) (2.0-8.3) x10*3/uL Absolute Nucleated RBC (0.0-0.012) X10*3/uL Nucleated RBC % (auto) (0.0-0.2) /100WBC PT (10.0-13.1) SEC INR (0.9-1.1) Sodium (135-145) mmol/L Potassium (3.3-5.1) mmol/L Chloride (96-108) mmol/L Carbon Dioxide (22-29) mmol/L Anion Gap (12-20) BUN (9-16) mg/dL Creatinine (0.5-1.4) mg/dL Estim Creat Clear Calc Estimated GFR Random Glucose (60-115) mg/dL Calcium (8.4-10.2) mg/dL Total Bilirubin (0.0-1.0) mg/dL AST (5-31) U/L ALT (0-31) U/L Alkaline Phosphatase (39-117) U/L Troponin I High Sens (<3.5-17.0) ng/L Total Protein (6.5-8.0) g/dL Albumin (3.5-5.0) g/dL Urine Color Yellow Urine Appearance Clear Urine pH 7.0 (5.0-9.0) Ur Specific [place] <= 1.005 (1.005-1.025) Urine Protein Negative (Neg-Trace) mg/dL Urine Glucose (UA) Negative (Negative) mg/dL Urine Ketones Negative (Negative) mg/dL Urine Blood Moderate (2+) H (Negative) Urine Nitrite Negative (Negative) Ur Leukocyte Esterase Negative (Negative) Urine RBC 0-2 (0-2) /HPF Urine WBC 0-5 (0-5) /HPF Ur Squamous Epith Cells 0-2 (0-2) /HPF Urine Bacteria None Seen (None Seen) Hyaline Casts 0-2 (0-2) /LPF Urine Test NEGATIVE (NEGATIVE) COVID-19 ([facility]) (Negative) COVID-19 Clin Com Influenza Type A ([facility]) (Negative) Influenza Type B ([facility]) (Negative) Influenza A & B Note <Fabi Nj, LORRIE - Last Filed: 11/02/22 14:51> Lab Results 11/02/22 11/02/22 11/02/22 Range/Units 15:03 15:03 15:03 WBC 9.7 (4.8-10.8) X10*3/uL RBC 4.50 (4.20-5.50) X10*6/uL Hgb 12.9 (12.0-16.0) g/dl Hct 38.7 (37.0-47.0) % MCV 86.0 (80.0-98.0) fL MCH 28.7 (27.0-33.0) pg MCHC 33.3 (31.0-35.0) g/dl RDW 13.6 (11.0-16.0) % Plt Count 293 (160-400) X10*3/uL MPV 11.4 (9.4-12.3) fL Immature Gran % (Auto) 0.4 (0.0-0.4) % Neut % (Auto) 77.0 H (45-73) % Lymph % (Auto) 15.3 L (20-40) % Grimes % (Auto) 5.9 (2-11) % Eos % (Auto) 0.8 (0-4) % Baso % (Auto) 0.6 (0-2) % Lymph # (Auto) 1.5 (1.2-4.9) X10*3/uL Grimes # (Auto) 0.6 (0.1-1.2) X10*3/uL Eos # (Auto) 0.1 (0.0-0.4) X10*3/uL Baso # (Auto) 0.1 (0.0-0.2) X10*3/uL Abs Immat Gran (auto) 0.04 H (0.00-0.03) X10*3/uL Absolute Neuts (auto) 7.5 (2.0-8.3) x10*3/uL Absolute Nucleated RBC 0.000 (0.0-0.012) X10*3/uL Nucleated RBC % (auto) 0.0 (0.0-0.2) /100WBC PT (10.0-13.1) SEC INR (0.9-1.1) Sodium 140 (135-145) mmol/L Potassium 4.1 (3.3-5.1) mmol/L Chloride 106 (96-108) mmol/L Carbon Dioxide 26 (22-29) mmol/L Anion Gap 12 (12-20) BUN 5 L (9-16) mg/dL Creatinine 0.62 (0.5-1.4) mg/dL Estim Creat Clear Calc 126.0 Estimated GFR > 60 Random Glucose 110 (60-115) mg/dL Calcium 9.1 (8.4-10.2) mg/dL Total Bilirubin 0.3 (0.0-1.0) mg/dL AST 24 (5-31) U/L ALT 38 H (0-31) U/L Alkaline Phosphatase 64 (39-117) U/L Troponin I High Sens < 3.5 (<3.5-17.0) ng/L Total Protein 7.0 (6.5-8.0) g/dL Albumin 4.1 (3.5-5.0) g/dL Urine Color Urine Appearance Urine pH (5.0-9.0) Ur Specific [place] (1.005-1.025) Urine Protein (Neg-Trace) mg/dL Urine Glucose (UA) (Negative) mg/dL Urine Ketones (Negative) mg/dL Urine Blood (Negative) Urine Nitrite (Negative) Ur Leukocyte Esterase (Negative) Urine RBC (0-2) /HPF Urine WBC (0-5) /HPF Ur Squamous Epith Cells (0-2) /HPF Urine Bacteria (None Seen) Hyaline Casts (0-2) /LPF Urine Test (NEGATIVE) COVID-19 ([facility]) (Negative) COVID-19 Clin Com Influenza Type A ([facility]) (Negative) Influenza Type B ([facility]) (Negative) Influenza A & B Note 11/02/22 11/02/22 11/02/22 Range/Units 15:03 15:03 15:03 WBC (4.8-10.8) X10*3/uL RBC (4.20-5.50) X10*6/uL Hgb (12.0-16.0) g/dl Hct (37.0-47.0) % MCV (80.0-98.0) fL MCH (27.0-33.0) pg MCHC (31.0-35.0) g/dl RDW (11.0-16.0) % Plt Count (160-400) X10*3/uL MPV (9.4-12.3) fL Immature Gran % (Auto) (0.0-0.4) % Neut % (Auto) (45-73) % Lymph % (Auto) (20-40) % [place]imes % (Auto) (2-11) % Eos % (Auto) (0-4) % Baso % (Auto) (0-2) % Lymph # (Auto) (1.2-4.9) X10*3/uL [place] # (Auto) (0.1-1.2) X10*3/uL Eos # (Auto) (0.0-0.4) X10*3/uL Baso # (Auto) (0.0-0.2) X10*3/uL Abs Immat Gran (auto) (0.00-0.03) X10*3/uL Absolute Neuts (auto) (2.0-8.3) x10*3/uL Absolute Nucleated RBC (0.0-0.012) X10*3/uL Nucleated RBC % (auto) (0.0-0.2) /100WBC PT 12.8 (10.0-13.1) SEC INR 1.1 (0.9-1.1) Sodium (135-145) mmol/L Potassium (3.3-5.1) mmol/L Chloride (96-108) mmol/L Carbon Dioxide (22-29) mmol/L Anion Gap (12-20) BUN (9-16) mg/dL Creatinine (0.5-1.4) mg/dL Estim Creat Clear Calc Estimated GFR Random Glucose (60-115) mg/dL Calcium (8.4-10.2) mg/dL Total Bilirubin (0.0-1.0) mg/dL AST (5-31) U/L ALT (0-31) U/L Alkaline Phosphatase (39-117) U/L Troponin I High Sens (<3.5-17.0) ng/L Total Protein (6.5-8.0) g/dL Albumin (3.5-5.0) g/dL Urine Color Urine Appearance Urine pH (5.0-9.0) Ur Specific [place] (1.005-1.025) Urine Protein (Neg-Trace) mg/dL Urine Glucose (UA) (Negative) mg/dL Urine Ketones (Negative) mg/dL Urine Blood (Negative) Urine Nitrite (Negative) Ur Leukocyte Esterase (Negative) Urine RBC (0-2) /HPF Urine WBC (0-5) /HPF Ur Squamous Epith Cells (0-2) /HPF Urine Bacteria (None Seen) Hyaline Casts (0-2) /LPF Urine Test (NEGATIVE) COVID-19 ([facility]) Negative (Negative) COVID-19 Clin Com See Note Influenza Type A ([facility]) Negative (Negative) Influenza Type B (BRODY) Negative (Negative) Influenza A & B Note See Note 11/02/22 11/02/22 Range/Units 15:03 15:03 WBC (4.8-10.8) X10*3/uL RBC (4.20-5.50) X10*6/uL Hgb (12.0-16.0) g/dl Hct (37.0-47.0) % MCV (80.0-98.0) fL MCH (27.0-33.0) pg MCHC (31.0-35.0) g/dl RDW (11.0-16.0) % Plt Count (160-400) X10*3/uL MPV (9.4-12.3) fL Immature Gran % (Auto) (0.0-0.4) % Neut % (Auto) (45-73) % Lymph % (Auto) (20-40) % [place] % (Auto) (2-11) % Eos % (Auto) (0-4) % Baso % (Auto) (0-2) % Lymph # (Auto) (1.2-4.9) X10*3/uL [place] # (Auto) (0.1-1.2) X10*3/uL Eos # (Auto) (0.0-0.4) X10*3/uL Baso # (Auto) (0.0-0.2) X10*3/uL Abs Immat Gran (auto) (0.00-0.03) X10*3/uL Absolute Neuts (auto) (2.0-8.3) x10*3/uL Absolute Nucleated RBC (0.0-0.012) X10*3/uL Nucleated RBC % (auto) (0.0-0.2) /100WBC PT (10.0-13.1) SEC INR (0.9-1.1) Sodium (135-145) mmol/L Potassium (3.3-5.1) mmol/L Chloride (96-108) mmol/L Carbon Dioxide (22-29) mmol/L Anion Gap (12-20) BUN (9-16) mg/dL Creatinine (0.5-1.4) mg/dL Estim Creat Clear Calc Estimated GFR Random Glucose (60-115) mg/dL Calcium (8.4-10.2) mg/dL Total Bilirubin (0.0-1.0) mg/dL AST (5-31) U/L ALT (0-31) U/L Alkaline Phosphatase (39-117) U/L Troponin I High Sens (<3.5-17.0) ng/L Total Protein (6.5-8.0) g/dL Albumin (3.5-5.0) g/dL Urine Color Yellow Urine Appearance Clear Urine pH 7.0 (5.0-9.0) Ur Specific [place] <= 1.005 (1.005-1.025) Urine Protein Negative (Neg-Trace) mg/dL Urine Glucose (UA) Negative (Negative) mg/dL Urine Ketones Negative (Negative) mg/dL Urine Blood Moderate (2+) H (Negative) Urine Nitrite Negative (Negative) Ur Leukocyte Esterase Negative (Negative) Urine RBC 0-2 (0-2) /HPF Urine WBC 0-5 (0-5) /HPF Ur Squamous Epith Cells 0-2 (0-2) /HPF Urine Bacteria None Seen (None Seen) Hyaline Casts 0-2 (0-2) /LPF Urine Test NEGATIVE (NEGATIVE) COVID-19 ([facility]) (Negative) COVID-19 Clin Com Influenza Type A (BRODY) (Negative) Influenza Type B (BRODY) (Negative) Influenza A & B Note <SAI Diez - Last Filed: 11/02/22 21:14> Independent Interpretation I performed an independent interpretation of an: EKG <SAI Diez - Last Filed: 11/02/22 21:14> Interpretation: Vent. Rate: 114 BPM ? ? Atrial Rate: 114 BPM P-R Int: 142 ms? QRS Dur: 068 ms QT Int: 298 ms ? ? ? P-R-T Axes: 076 -65 064 degrees QTc Int: 410 ms ? Sinus tachycardia Possible Left atrial enlargement Left axis deviation Possible Inferior infarct , age undetermined Anterior infarct (cited on or before 20-ELIEZER-2023) Abnormal ECG When compared with ECG of 12-ELIEZER-2023 14:50, No significant change was found DD/ 1459 <SAI Diez - Last Filed: 11/02/22 21:14> Independent Historian Clinical information obtained from an independent historian. History obtained from or confirmed by: Other (patient's brother) <SAI Diez - Last Filed: 11/02/22 21:14> External Record Review External record reviewed: Other (inpatient psych records reviewed) <SAI Diez - Last Filed: 11/02/22 21:14> Discharge Plan Discharge Clinical Impression: Bipolar 1 disorder <Fabi Nj CNP - Last Filed: 11/02/22 14:51> Patient Disposition: Home, Self-Care <Fabi Nj CNP - Last Filed: 11/02/22 14:51> Instructions: Bipolar Disorder (ED) <Fabi Nj CNP - Last Filed: 11/02/22 14:51> Additional Instructions: Decrease your risperidone to 2mg PO at bedtime STOP your quetiapine (Seroquel) Increase your Benztropine to 1mg Follow up with your primary care provider and your psychiatrist. Return to the emergency department immediately if your symptoms worsen or if you develop any dizziness, shortness of breath, difficulty breathing, chest pain, blurry vision, loss of vision, nausea, vomiting, abdominal pain, fever, chills, back pain, or any other complaints. <Fabi Nj CNP - Last Filed: 11/02/22 14:51> Prescriptions: New risperidone 2 mg tablet 2 mg PO BEDTIME 30 Days Qty: 30 0RF Discontinued risperidone 3 mg Tablet 3 mg PO BEDTIME Qty: 15 1RF quetiapine [Seroquel] 25 mg tablet 25 mg PO BID PRN (Reason: anxiety) Qty: 14 1RF No Action clonidine HCl 0.1 mg Tablet 0.1 mg PO BEDTIME Qty: 15 1RF Protocol: Hold for SBP< HOLD for SBP < : 90 benztropine 0.5 mg Tablet 0.5 mg PO BEDTIME Qty: 15 1RF melatonin 3 mg Tablet 3 mg PO BEDTIME PRN (Reason: continued insomnia) Qty: 15 1RF trazodone 100 mg Tablet 100 mg PO BEDTIME Qty: 15 1RF hydroxyzine HCl 25 mg Tablet 25 mg PO Q6H PRN (Reason: Anxiety) Qty: 60 1RF <Fabi Nj CNP - Last Filed: 11/02/22 14:51> Referrals: [facility] [place] [facility] [Provider Group] (Call to establish and follow up with a primary care provider. If you already have a primary care provider, please follow up with them. ) [facility] [place] [facility], [facility] [Provider Group] (Call to establish and follow up with a primary care provider. If you already have a primary care provider, please follow up with them. ) [facility] [place] [facility],Dulce Maria [Provider Group] (Call to establish and follow up with a primary care provider. If you already have a primary care provider, please follow up with them. ) <Fabi Nj CNP - Last Filed: 11/02/22 14:51> Interventions: ED Discharge Assessment Last Done: 11/02/22 17:35 <Fabi Nj CNP - Last Filed: 11/02/22 14:51> Discharge Date/Time: 11/02/22 17:35 <Fabi Nj CNP - Last Filed: 11/02/22 14:51> Print Language: Djiboutian <Fabi Nj CNP - Last Filed: 11/02/22 14:51>
--- NOTE | 2022-11-02 14:51 | ECG_ITS ---
Test Reason : CHEST PAIN Blood Pressure : / mmHG Vent. Rate : 114 BPM Atrial Rate : 114 BPM P-R Int : 142 ms QRS Dur : 068 ms QT Int : 298 ms P-R-T Axes : 076 -65 064 degrees QTc Int : 410 ms Sinus tachycardia Possible Left atrial enlargement Left axis deviation Possible Inferior infarct , age undetermined Anterior infarct (cited on or before 02-NOV-2022) Abnormal ECG When compared with ECG of 25-OCT-2022 14:50, No significant change was found Referred By: Fabi Nj Electronically Signed By:JACOB FARRELL MD
[2022-11-02 15:12] LABS: MANUAL DIFF FLAG NO
[2022-11-02 15:15] LABS: Basophils Absolute Auto 0.1 X10*3/uL (0.0-0.2); Basophils Percent Auto 0.6 % (0-2); Eosinophils Absolute Auto 0.1 X10*3/uL (0.0-0.4); Eosinophils Percent Auto 0.8 % (0-4); Hematocrit 38.7 % (37.0-47.0); Hemoglobin 12.9 g/dl (12.0-16.0); Imm Gran Abs Auto 0.04 X10*3/uL (0.00-0.03); Imm Gran Pct Auto 0.4 % (0.0-0.4); Lymphocytes Absolute Auto 1.5 X10*3/uL (1.2-4.9); Lymphocytes Percent Auto 15.3 % (20-40); Mean Corpuscular HGB Conc 33.3 g/dl (31.0-35.0); Mean Corpuscular Hemoglobin 28.7 pg (27.0-33.0); Mean Platelet Volume 11.4 fL (9.4-12.3); Monocytes Absolute Auto 0.6 X10*3/uL (0.1-1.2); Monocytes Percent Auto 5.9 % (2-11); Neutrophils Absolute Auto 7.5 x10*3/uL (2.0-8.3); Platelet Count 293 X10*3/uL (160-400); Red Cell Distribution Width 13.6 % (11.0-16.0); White Blood Count 9.7 X10*3/uL (4.8-10.8)
[2022-11-02 15:16] LABS: Appearance Urine Clear; Color Urine Yellow; Glucose Urine UA Negative (Negative); Leukocyte Esterase Urine Negative (Negative); Nitrite Urine Negative (Negative); Specific Gravity - Urine <= 1.005 (1.005-1.025); UMIC TRIGGER UACC YES; Urine Blood Moderate (2+) (Negative); Urine Ketones Negative (Negative); Urine Protein Negative (Neg-Trace)
[2022-11-02 15:18] LABS: UPreg QC Valid YES; Urine Pregnancy NEGATIVE (NEGATIVE)
[2022-11-02 15:20] LABS: INTERNATIONAL NORM RATIO 1.1 (0.9-1.1); Prothrombin Time 12.8 SEC (10.0-13.1)
[2022-11-02 15:27] LABS: Bacteria Urine None Seen (None Seen); Hyaline Casts Urine 0-2 /LPF (0-2); RBC Urine 0-2 /HPF (0-2); Squamous Epithelial Cell Urine 0-2 /HPF (0-2); WBC Urine 0-5 /HPF (0-5)
[2022-11-02 15:28] LABS: COVID-19 Test Negative (Negative); IDNOW Serial# 6674DD1D
[2022-11-02 15:31] LABS: IDNOW Serial# 55D5AD1C; Influenza A Negative (Negative); Influenza B2 Negative (Negative)
[2022-11-02 15:34] LABS: Alanine Aminotransferase 38 U/L (0-31); Albumin Level 4.1 g/dL (3.5-5.0); Alkaline Phosphatase 64 U/L (39-117); Anion Gap 12 (12-20); Aspartate Amino Transferase 24 U/L (5-31); Bilirubin Total 0.3 mg/dL (0.0-1.0); Blood Urea Nitrogen 5 mg/dL (9-16); Calcium 9.1 mg/dL (8.4-10.2); Carbon Dioxide 26 mmol/L (22-29); Chloride 106 mmol/L (96-108); Estimated Glomerular Filt Rate > 60; Glucose Random 110 mg/dL (60-115); Potassium 4.1 mmol/L (3.3-5.1); Sodium 140 mmol/L (135-145)
[2022-11-02 15:44] LABS: Troponin-I High Sensitivity < 3.5 ng/L (<3.5-17.0)
[2022-11-02] MEDS: Acetaminophen 325 MG TABLET 975 MG PO (15:58)
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
[2022-11-02] MEDS: LORazepam 1 MG TABLET 2 MG PO (17:33)
== END 2022-11-02 17:35 | disposition home or self-care (01) ==
PROVIDERS: Nurse Practitioner Family; Emergency Provider Emergency Medicine; PCP Pediatrics
DX: R07.9 Chest pain, unspecified (principal); F31.89 Other bipolar disorder; Z79.899 Other long term (current) drug therapy; Z20.822 Contact with and (suspected) exposure to COVID-19
CPT/HCPCS: 36415; 80053; 81001; 81025; 84484; 85025; 85610; 87502; 87635; 93005; 99283; 99284

== ENCOUNTER → 2023-01-17 09:05 | Outpatient (BNVA) | payer MEDICAID, SELFPAY | PROVIDERS: PCP General Practice; Referring Provider General Practice; Visit Provider Internal Medicine Cardiovascular Disease | DX: R94.31 Abnormal electrocardiogram [ECG] [EKG] (principal) | CPT/HCPCS: 99202 ==

== ENCOUNTER → 2023-01-24 14:07 | Outpatient (REF) | payer MEDICAID, SELFPAY ==
--- NOTE | 2023-01-24 14:11 | CA_ITS ---
Transthoracic Echocardiogram Patient (Last, First, Middle): Shawanda Varner, Gender: Female Date of : 2000 Age: 22 Procedure Date: 01/24/2023 Procedure Type: Transthoracic Echocardiogram Location: OP Height: 162.56 cm Weight: 59.88 kg BSA: 1.64 m2 Heart Rate: 66 bpm BP: 130 / 80 mmHg Moisture Meter Reader: MEY Referring MD: Luis Barrera MD Educational Technologist: Luis Barrera MD Symptoms: R94.31 - Abnormal electrocardiogram [ECG] [EKG] Study Quality: Adequate ECG Rhythm: Sinus Conclusions: - Normal study Findings Left Ventricle Normal left ventricular size, thickness, and systolic function. The visually estimated ejection fraction is between 60-65%. Diastolic function is normal for age. Right Ventricle Normal right ventricular cavity size and systolic function. Atria Both atria are normal in size. Aortic Valve Normal aortic valve structure and function. There is no aortic valve stenosis. There is no aortic valve regurgitation. Mitral Valve Normal mitral valve structure and function. There is trace mitral valve regurgitation. There is no mitral valve stenosis. Pulmonic Valve The pulmonic valve is normal. There is trace pulmonic valve regurgitation. Tricuspid Valve Normal tricuspid valve structure. Tricuspid regurgitation envelope is inadequate for calculation of right ventricular systolic pressure. Normal right atrial pressure. Great Vessels All visible segments of the aorta are normal in size. The visualized portions of the pulmonary artery and branches are normal. Venous The inferior vena cava is normal in size and collapses greater than 50% with inspiration. Pericardium/Pleural There is no evidence of pericardial effusion. Prior Study Comparison No prior study available for comparison. Measurements 2D Linear Measurements IVSd: 1.04 0.6-0.9/0.6-1.0 cm LVIDd: 4.15 3.9-5.3/4.2-5.9 cm LVIDd Index: 2.53 2.4-3.2/2.2-3.1 cm/m2 LVIDs: 3.49 2.0-3.6 cm LVPWd: 0.89 0.7-1.1 cm LA Diam: 2.60 2.7-3.8/3.0-4.0 cm LAIDs Index: 1.59 1.5-2.3 cm/m2 LV Mass: 159.88 67-162/88-224 g LV Mass Index: 97.48 43-95/49-115 g/m2 LVOT Diam: 1.90 3.0+(-)1.3 cm 2D Systolic Function EF 4C: 54.10 >55% EF 2C: 66.60 >55% EF BiP: 60.80 >55% Mitral Valve MV Pk E: 1.17 MV PK A: 0.32 MV Decel Time: 182.00 E/A: 3.60 E'Lateral: 14.50 E'Medial: 8.81 E/E' Med: 13.30 E/E' Lat: 8.10 PHT: 53.00 MVA PHT: 4.15 Decel Wagoner: 6.39 Aortic Valve AoV Pk Neftaly: 1.17 AoV Pk Grad: 5.00 RAJNI: 2.34 LVOT LVOT Pk Neftaly: 0.97 LVOT Mn Neftaly: 0.64 LVOT VTI: 0.19 LVOT Pk Grad: 4.00 LVOT Mn Grad: 2.00 LVOT Diam: 1.90 LVOT Area: 2.84 Diastolic Function MV Pk E: 1.17 MV Pk A: 0.32 E/A: 3.60 E'Medial: 8.81 E/E' Med: 13.30 E' Laterial: 14.50 E/E' Lat: 8.10 Right Ventricle TAPSE (mm): 10.00 TVS' Neftaly: 8.70 Tricuspid Valve RA Press: 3.00 Great Vessels Aorta Sinus of Valsalva: 2.90 2.0-3.5 cm Ao Asc: 2.50 2.1-3.4 cm Pulmonary Valve PV Pk Neftaly: 0.88 Peak PV Grad: 3.00 Updated in Other Vendor System with Status of Final Luis Barrera MD electronically signed on 01/24/2023 5:47:20 PM with status of Final
== END ==
LOC: HO.CARD 14:07
PROVIDERS: PCP General Practice; Visit Provider Internal Medicine Cardiovascular Disease
DX: R94.31 Abnormal electrocardiogram [ECG] [EKG] (principal)
CPT/HCPCS: 93306

== ENCOUNTER 2024-03-16 14:17 | Outpatient (REF) | payer MEDICAID, SELFPAY ==
--- NOTE | ~2024-03-16 | XR_ITS ---
EXAMINATION: XR HIP, RIGHT CLINICAL INFORMATION: Pain, positive FADIR COMPARISON: None available. TECHNIQUE: Two views of the right hip. FINDINGS: No fracture. Alignment is anatomic. Hip joint space is maintained. Soft tissues are unremarkable. XR/XR hip RT min 2V IMPRESSION: No bony abnormality.
[2024-03-16 17:29] LABS: CT PCR NOT DETECTED (Not Detect.); NG PCR NOT DETECTED (Not Detect.)
[2024-03-17 05:50] LABS: HIV AB/AG Nonreactive (Nonreactive); HIV Num 1 0.05 S/CO (0.00-0.99); ~Hepatitis C Antibody Nonreactive (Nonreactive)
[2024-03-19 06:54] LABS: RPR Rapid Plasma Reagin NON-REACTIVE (NON-REACTIVE)
== END 2024-03-16 14:18 | disposition home or self-care (01) ==
LOC: HO.HHCL 14:17
PROVIDERS: Visit Provider General Practice
DX: M25.551 Pain in right hip (principal); Z11.3 Encounter for screening for infections with a predominantly sexual mode of transmission
CPT/HCPCS: 0353U; 36415; 73502; 86592; 86803; 87389

== ENCOUNTER 2024-09-15 18:07 | Emergency (ER) | payer OTHER, SELFPAY ==
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
--- NOTE | 2024-09-15 18:34 | ECG_ITS ---
Test Reason : CHEST PAIN Blood Pressure : / mmHG Vent. Rate : 078 BPM Atrial Rate : 078 BPM P-R Int : 136 ms QRS Dur : 086 ms QT Int : 364 ms P-R-T Axes : 021 -38 035 degrees QTc Int : 414 ms Normal sinus rhythm with sinus arrhythmia Left axis deviation Anteroseptal infarct Abnormal ECG When compared with ECG of 02-NOV-2022 14:59, No significant change was found Referred By: Josefina Martínez Electronically Signed By:Gurwinder Gonzalez
[2024-09-15 18:54] VITALS: BP 133/83; PULSE 77; RESP 16; TEMP 36.9; O2SAT 98; BMI 28.3
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
[2024-09-15] MEDS: methocarbamoL 750 MG TABLET PO (19:15)
[2024-09-15 19:24] LABS: UPreg QC Valid YES; Urine Pregnancy NEGATIVE (NEGATIVE)
[2024-09-15 22:05] VITALS: BP 119/61; PULSE 67; RESP 19; TEMP 36.9; O2SAT 100
[2024-09-15 23:14] VITALS: BP 119/61; PULSE 67; RESP 19; TEMP 36.9; O2SAT 100
== END 2024-09-15 23:14 | disposition home or self-care (01) ==
PROVIDERS: Physician Assistant Medical; Emergency Provider Emergency Medicine Emergency Medical Services; PCP General Practice
DX: S29.9XXA Unspecified injury of thorax, initial encounter (principal); R07.89 Other chest pain; I49.8 Other specified cardiac arrhythmias; V43.52XA Car driver injured in collision with other type car in traffic accident, initial encounter; Y93.89 Activity, other specified; Y92.488 Other paved roadways as the place of occurrence of the external cause; Y99.8 Other external cause status
CPT/HCPCS: 71046; 81025; 93005; 99283

== ENCOUNTER → 2024-09-15 18:34 | Outpatient (BNV) | payer OTHER, SELFPAY | PROVIDERS: Emergency Provider Emergency Medicine Emergency Medical Services; PCP General Practice; Visit Provider Internal Medicine Cardiovascular Disease | DX: R07.9 Chest pain, unspecified (principal) | CPT/HCPCS: 93010 ==